=== PATIENT | male | born 1960 | race American Indian/Alaskan Native ===

== ENCOUNTER 2017-09-08 21:06 | Inpatient (IN) | payer SELFPAY ==
[2017-09-08 21:17] LABS: Basophils % (Auto) 0.7 % (0.0-1.8); Eosinophils # (Auto) 0.1 K/mm3 (0.0-0.4); Eosinophils % (Auto) 1.7 % (0.0-4.3); Hematocrit 42.4 % (35.5-45.6); Hemoglobin 14.1 gm/dl (11.8-15.2); Lymphocytes # (Auto) 1.5 K/mm3 (1.2-5.4); Mean Corpuscular HGB Conc 33 % (32-34); Mean Corpuscular Hemoglobin 30 pg (28-32); Mean Corpuscular Volume 91 fl (84-94); Monocytes # (Auto) 0.6 K/mm3 (0.0-0.8); Monocytes % (Auto) 7.6 % (0.0-7.3); Platelet Count 138 K/mm3 (140-440); Red Blood Count 4.68 M/mm3 (3.65-5.03); Red Cell Distribution Width 13.9 % (13.2-15.2)
--- NOTE | 2017-09-08 21:20 | Emergency Department Report ---
ED Neuro Deficit HPI - General Stated Complaint: HIGH BP Time Seen by Provider: 09/08/17 21:16 Source: patient, family, EMS Mode of arrival: Stretcher Limitations: No Limitations - History of Present Illness Initial Comments: 57-year-old male with a past medical history hypertension, CHF, previous CVA presents to the hospital with alteration in mental status. At aprox 8:15 PM family witnessed patient stand up and pass out. He was unresponsive upon EMS arrival and slowly became more responsive. Complains of a moderate right-sided headache. Patient's been noncompliant with his blood pressure medication for several days. Family also states the patient abuses cocaine. He denies taking blood thinners. - Related Data Home Medications: Home Medications Medication Instructions Recorded Confirmed Last Taken Lisinopril [Zestril] 30 mg PO DAILY 09/08/17 09/08/17 09/04/17 Metoprolol Tartrate 75 mg PO DAILY 09/08/17 09/08/17 09/04/17 Allergies/Adverse Reactions: Allergies Allergy/AdvReac Type Severity Reaction Status Date / Time No Known Allergies Allergy Verified 09/08/17 22:05 ED Review of Systems ROS: Stated complaint: HIGH BP Other details as noted in HPI Comment: All other systems reviewed and negative ED Past Medical Hx - Medications Home Medications: Home Medications Medication Instructions Recorded Confirmed Last Taken Type Lisinopril [Zestril] 30 mg PO DAILY 09/08/17 09/08/17 09/04/17 History Metoprolol Tartrate 75 mg PO DAILY 09/08/17 09/08/17 09/04/17 History ED Neuro Physical Exam - General Suspected Stroke: Yes - Neurological Exam Neurological exam: Present: alert - NIHSS Assessment Interval: Baseline 1a. Level of Consciousness: alert 1b. LOC Questions: answers no questions correctly 1c. LOC Commands: performs tasks correctly 2. Best Gaze: normal 3. Visual: no visual loss 4. Facial Palsy: normal symmetrical movement 5b. Motor Arm Right: no drift 5a. Motor Arm Left: drift 6a. Motor Leg Left: some gravity effort 6b. Motor Leg Right: no drift 7. Limb Ataxia: absent 8. Sensory: mild/moderate sensory loss 9. Best Language: no aphasia 10. Dysarthria: normal 11. Extinction/Inattention: no abnormality Total Score: 6 Stroke Severity: Moderate Stroke - Other Other exam information: General: No limitations, patient is alert in no acute distress Head exam: Atraumatic, normocephalic Eyes exam: Normal appearance, pupils equal reactive to light, extraocular movements intact ENT: Moist mucous membrane, normal oropharynx Neck exam: Normal inspection, full range of motion, no meningismus nontender Respiratory exam: Clear to auscultation bilateral, no wheezes, rales, crackles Cardiovascular: Normal rate and rhythm, normal heart sounds Abdomen: Soft, nondistended, and nontender, with normal bowel sounds, no rebound, or guarding Extremity: Full range of motion normal inspection no deformity Back: Normal Inspection, full range of motion, no tenderness Neurologic: Alert, oriented to person, year, but not to place, cranial nerves intact, left-sided 4/5 weakness of upper and lower extremity drift. Psychiatric: normal affect, normal mood Skin: Warm, dry, intact ED Course Vital Signs 09/08/17 09/08/17 09/08/17 21:17 21:25 21:30 Temperature 98.9 F Pulse Rate 71 85 86 Pulse Rate [ Right Arm] Respiratory 21 17 Rate Respiratory Rate [Right Arm ] Blood Pressure 171/108 180/103 Blood Pressure [Right Arm] O2 Sat by Pulse 97 95 97 Oximetry O2 Sat by Pulse Oximetry [ Right Arm] 09/08/17 09/08/17 09/08/17 21:45 22:00 22:15 Temperature Pulse Rate 85 Pulse Rate [ Right Arm] Respiratory 25 H 24 21 Rate Respiratory Rate [Right Arm ] Blood Pressure 197/119 189/129 189/129 Blood Pressure [Right Arm] O2 Sat by Pulse 97 96 95 Oximetry O2 Sat by Pulse Oximetry [ Right Arm] 09/08/17 09/08/17 09/08/17 22:20 22:30 22:45 Temperature Pulse Rate 86 80 Pulse Rate [ 89 Right Arm] Respiratory 21 17 Rate Respiratory 20 Rate [Right Arm ] Blood Pressure 162/99 171/102 168/104 Blood Pressure 162/99 [Right Arm] O2 Sat by Pulse 96 94 Oximetry O2 Sat by Pulse 98 Oximetry [ Right Arm] 09/08/17 09/08/17 09/08/17 23:00 23:04 23:05 Temperature Pulse Rate Pulse Rate [ 86 86 Right Arm] Respiratory 23 Rate Respiratory 20 20 Rate [Right Arm ] Blood Pressure 155/96 Blood Pressure 168/101 172/102 [Right Arm] O2 Sat by Pulse 97 Oximetry O2 Sat by Pulse 100 96 Oximetry [ Right Arm] 09/08/17 09/08/17 09/08/17 23:07 23:15 23:16 Temperature Pulse Rate 89 Pulse Rate [ 86 Right Arm] Respiratory 18 Rate Respiratory 19 Rate [Right Arm ] Blood Pressure 162/99 155/96 Blood Pressure 169/98 [Right Arm] O2 Sat by Pulse 95 Oximetry O2 Sat by Pulse 98 Oximetry [ Right Arm] 09/08/17 09/08/17 09/08/17 23:29 23:30 23:45 Temperature Pulse Rate 90 Pulse Rate [ 85 Right Arm] Respiratory 21 24 Rate Respiratory 20 Rate [Right Arm ] Blood Pressure 165/99 167/102 Blood Pressure 155/96 [Right Arm] O2 Sat by Pulse 96 97 Oximetry O2 Sat by Pulse 98 Oximetry [ Right Arm] 09/08/17 09/09/17 09/09/17 23:48 00:00 00:03 Temperature Pulse Rate Pulse Rate [ 89 85 Right Arm] Respiratory 16 Rate Respiratory 20 18 Rate [Right Arm ] Blood Pressure 175/102 Blood Pressure 167/102 172/100 [Right Arm] O2 Sat by Pulse 99 Oximetry O2 Sat by Pulse 96 98 Oximetry [ Right Arm] 09/09/17 09/09/17 09/09/17 00:15 00:18 00:30 Temperature Pulse Rate Pulse Rate [ 86 Right Arm] Respiratory 20 19 Rate Respiratory 18 Rate [Right Arm ] Blood Pressure 162/105 174/99 Blood Pressure 172/102 [Right Arm] O2 Sat by Pulse 96 96 Oximetry O2 Sat by Pulse 98 Oximetry [ Right Arm] 09/09/17 09/09/17 09/09/17 00:33 00:45 00:48 Temperature Pulse Rate Pulse Rate [ 89 82 Right Arm] Respiratory 22 Rate Respiratory 19 18 Rate [Right Arm ] Blood Pressure 162/105 Blood Pressure 176/100 176/102 [Right Arm] O2 Sat by Pulse 96 Oximetry O2 Sat by Pulse 96 98 Oximetry [ Right Arm] 09/09/17 09/09/17 09/09/17 00:57 01:00 01:03 Temperature Pulse Rate Pulse Rate [ Right Arm] Respiratory 21 20 22 Rate Respiratory Rate [Right Arm ] Blood Pressure 174/109 178/104 178/104 Blood Pressure [Right Arm] O2 Sat by Pulse 95 96 96 Oximetry O2 Sat by Pulse Oximetry [ Right Arm] 09/09/17 09/09/17 09/09/17 01:15 01:18 01:30 Temperature Pulse Rate Pulse Rate [ 92 H Right Arm] Respiratory 17 21 Rate Respiratory 18 Rate [Right Arm ] Blood Pressure 174/109 178/108 Blood Pressure 176/102 [Right Arm] O2 Sat by Pulse Oximetry O2 Sat by Pulse 96 Oximetry [ Right Arm] 09/09/17 09/09/17 09/09/17 01:45 01:48 02:00 Temperature Pulse Rate 80 Pulse Rate [ 78 Right Arm] Respiratory 25 H 22 Rate Respiratory 18 Rate [Right Arm ] Blood Pressure 176/107 175/109 Blood Pressure 178/105 [Right Arm] O2 Sat by Pulse 74 L Oximetry O2 Sat by Pulse 98 Oximetry [ Right Arm] 09/09/17 09/09/17 09/09/17 02:15 02:18 02:31 Temperature Pulse Rate 75 Pulse Rate [ 84 Right Arm] Respiratory 10 L 15 Rate Respiratory 18 Rate [Right Arm ] Blood Pressure 168/110 176/112 Blood Pressure 176/109 [Right Arm] O2 Sat by Pulse 73 L Oximetry O2 Sat by Pulse 98 Oximetry [ Right Arm] 09/09/17 09/09/17 09/09/17 02:45 02:48 03:01 Temperature Pulse Rate Pulse Rate [ 80 Right Arm] Respiratory 31 H 42 H Rate Respiratory 18 Rate [Right Arm ] Blood Pressure 176/112 189/110 Blood Pressure 180/95 [Right Arm] O2 Sat by Pulse Oximetry O2 Sat by Pulse 98 Oximetry [ Right Arm] 09/09/17 09/09/17 09/09/17 03:16 03:18 03:30 Temperature Pulse Rate 79 Pulse Rate [ 86 Right Arm] Respiratory 38 H 19 Rate Respiratory 18 Rate [Right Arm ] Blood Pressure 189/110 190/123 Blood Pressure 182/95 [Right Arm] O2 Sat by Pulse Oximetry O2 Sat by Pulse 98 Oximetry [ Right Arm] 09/09/17 09/09/17 09/09/17 03:45 03:48 04:00 Temperature Pulse Rate 81 Pulse Rate [ 82 Right Arm] Respiratory 20 20 Rate Respiratory 18 Rate [Right Arm ] Blood Pressure 189/124 177/105 Blood Pressure 189/110 [Right Arm] O2 Sat by Pulse Oximetry O2 Sat by Pulse 100 Oximetry [ Right Arm] 09/09/17 09/09/17 09/09/17 04:15 04:30 04:45 Temperature Pulse Rate 78 Pulse Rate [ Right Arm] Respiratory 19 18 15 Rate Respiratory Rate [Right Arm ] Blood Pressure 180/92 175/106 172/92 Blood Pressure [Right Arm] O2 Sat by Pulse Oximetry O2 Sat by Pulse Oximetry [ Right Arm] - Reevaluation(s) Reevaluation #1: 09/08/17 21:[address] head negative Reevaluation #2: 09/08/17 22:05 RN informed to decrease bp to less than 185/110 prior to tpa - Consultations Consultation #1: 09/08/17 21:34 Case d/w Dr Woody Will evaluate pt, official ct head report still pending 09/08/17 22:05 after eval, Dr reddy rec tpa after bp reduction - Lab Data Result diagrams: 09/08/17 21:11 09/08/17 21:11 Lab Results 09/08/17 09/08/17 09/08/17 Range/Units 21:11 21:11 21:11 WBC 7.3 (4.5-11.0) K/mm3 RBC 4.68 (3.65-5.03) M/mm3 Hgb 14.1 (11.8-15.2) gm/dl Hct 42.4 (35.5-45.6) % MCV 91 (84-94) fl MCH 30 (28-32) pg MCHC 33 (32-34) % RDW 13.9 (13.2-15.2) % Plt Count 138 L (140-440) K/mm3 Lymph % (Auto) 21.0 (13.4-35.0) % Dixon % (Auto) 7.6 H (0.0-7.3) % Eos % (Auto) 1.7 (0.0-4.3) % Baso % (Auto) 0.7 (0.0-1.8) % Lymph # 1.5 (1.2-5.4) K/mm3 Dixon # 0.6 (0.0-0.8) K/mm3 Eos # 0.1 (0.0-0.4) K/mm3 Baso # 0.0 (0.0-0.1) K/mm3 Seg Neutrophils % 69.0 (40.0-70.0) % Seg Neutrophils # 5.0 (1.8-7.7) K/mm3 PT 13.2 (12.2-14.9) Sec. INR 0.95 (0.87-1.13) APTT 22.2 L (24.2-36.6) Sec. Thrombin Time (15.1-19.6) Sec. Sodium 138 (137-145) mmol/L Potassium 4.0 (3.6-5.0) mmol/L Chloride 101.4 (98-107) mmol/L Carbon Dioxide 24 (22-30) mmol/L Anion Gap 17 mmol/L BUN 11 (9-20) mg/dL Creatinine 1.3 (0.8-1.5) mg/dL Estimated GFR > 60 ml/min BUN/Creatinine Ratio 8 % Glucose 100 (75-100) mg/dL Calcium 8.9 (8.4-10.2) mg/dL Troponin T < 0.010 (0.00-0.029) ng/mL 09/08/17 Range/Units 21:17 WBC (4.5-11.0) K/mm3 RBC (3.65-5.03) M/mm3 Hgb (11.8-15.2) gm/dl Hct (35.5-45.6) % MCV (84-94) fl MCH (28-32) pg MCHC (32-34) % RDW (13.2-15.2) % Plt Count (140-440) K/mm3 Lymph % (Auto) (13.4-35.0) % Dixon % (Auto) (0.0-7.3) % Eos % (Auto) (0.0-4.3) % Baso % (Auto) (0.0-1.8) % Lymph # (1.2-5.4) K/mm3 Dixon # (0.0-0.8) K/mm3 Eos # (0.0-0.4) K/mm3 Baso # (0.0-0.1) K/mm3 Seg Neutrophils % (40.0-70.0) % Seg Neutrophils # (1.8-7.7) K/mm3 PT (12.2-14.9) Sec. INR (0.87-1.13) APTT (24.2-36.6) Sec. Thrombin Time 16.9 (15.1-19.6) Sec. Sodium (137-145) mmol/L Potassium (3.6-5.0) mmol/L Chloride (98-107) mmol/L Carbon Dioxide (22-30) mmol/L Anion Gap mmol/L BUN (9-20) mg/dL Creatinine (0.8-1.5) mg/dL Estimated GFR ml/min BUN/Creatinine Ratio % Glucose (75-100) mg/dL Calcium (8.4-10.2) mg/dL Troponin T (0.00-0.029) ng/mL - EKG Data -: EKG Interpreted by Me EKG shows normal: sinus rhythm, axis (qrs -10), QRS complexes (qrsd 94), ST-T waves (no stemi) Rate: normal (84) - Radiology Data Radiology results: report reviewed ct head: negative - Medical Decision Making acute cva and htn with noncompliance cardene for bp tpa admission to icu hospitalist informed hx of cocaine abuse uds neg today - Differential Diagnosis ischemic CVA, hemorrhagic CVA, encephalopathy, hypertensive emergency - Thrombolytic Inclusion/Exclusion Thrombolytic Inclusion Criteria: Ischemic Stroke Onset< 3h, NIH Stroke Scale Deficit, Negative CT Scan for ICH, Age 18 or Older, Glucose of 50-400mg/dl Critical Care Time: Yes Critical care time in (mins) excluding proc time.: 35 Critical care attestation.: If time is entered above; I have spent that time in minutes in the direct care of this critically ill patient, excluding procedure time. ED Disposition Clinical Impression: Acute CVA (cerebrovascular accident), Uncontrolled hypertension, Noncompliance with medication regimen, Cocaine abuse Disposition: DC-09 OP ADMIT IP TO THIS HOSP Is pt being admited?: Yes Does the pt Need Aspirin: No (receiving tpa) Condition: Stable Time of Disposition: 22:12 (Dr Rosenberg/hosp)
[2017-09-08 21:27] LABS: INR 0.95 (0.87-1.13); Partial Thromboplastin Time 22.2 Sec. (24.2-36.6)
[2017-09-08 21:29] LABS: BUN/Creatinine Ratio 8; Blood Urea Nitrogen 11 mg/dL (9-20); Calcium 8.9 mg/dL (8.4-10.2); Hemolysis Index 71
--- NOTE | 2017-09-08 21:42 | Cat Scan Report ---
FINAL REPORT EXAM: CT HEAD/BRAIN WO CON HISTORY: neuro deficits < 6hrs or sx present upon awakening TECHNIQUE: CT head without contrast PRIORS: No prior studies for comparison FINDINGS: No acute intra-axial or extra-axial hemorrhage is identified. There is no evidence of midline shift or mass effect. The ventricles and sulci are within normal limits. Mcdonough-white matter differentiation is intact. No acute parenchymal abnormalities seen. Bony calvarium is grossly intact. Mild mucosal thickening noted within the maxillary sinuses IMPRESSION: Negative CT head
[2017-09-08] MEDS ORDERED: ACTIVASE ONE (22:03)
[2017-09-08] MEDS ORDERED: NACL 0.9% IV ONE (22:06)
[2017-09-08] MEDS ORDERED: ACTIVASE IV ONE ×2 (22:06)
[2017-09-08] MEDS ORDERED: CARDENE 50 MG in NACL 0.9% 250ML 230 ML IV SCH (23:00)
[2017-09-08] MEDS ORDERED: TYLENOL PO PRN (23:24)
[2017-09-08] MEDS ORDERED: TYLENOL PR PRN (23:25)
[2017-09-09 00:16] LABS: Amphetamine Screen,Urine PRESUMPTIVE NEGATIVE; Benzodiazepines Screen,Urine PRESUMPTIVE NEGATIVE; Cannabinoid Screen,Urine PRESUMPTIVE NEGATIVE; Cocaine Screen,Urine PRESUMPTIVE NEGATIVE; Methadone Screen,Urine PRESUMPTIVE NEGATIVE; Opiate Screen,Urine PRESUMPTIVE NEGATIVE
--- NOTE | 2017-09-09 09:52 | History and Physical Report ---
CHIEF COMPLAINT: Change in mental status. HISTORY OF PRESENT ILLNESS: The patient is a 57-year-old male with past history of hypertension, congestive heart failure, and previous CVA, who was noted by family to have change in mental status, and the patient was also noted to have passed out after falling to the ground for some minutes and Emergency Medical Services was called and the patient was noted to slowly become more responsive and was brought to the Emergency Room and also complained of headache on the right side. There was no history of chest pain, no history of shortness of breath. The patient is known to have high blood pressure and noncompliance with medication and also was known to be abusing cocaine. The patient was having generalized weakness and also weakness that is more on the left side than the right side of the body and based on that was given TPA in the Emergency Room based on teleradiology recommendation. PAST MEDICAL HISTORY: Pertinent for high blood pressure and drug abuse. PAST SURGICAL HISTORY: Unremarkable. FAMILY HISTORY: Noncontributory. SOCIAL HISTORY: The patient uses illicit drugs. It is not known whether the patient smokes cigarettes and also whether the patient drinks alcohol. MEDICATIONS: The patient is on lisinopril 30 mg daily, metoprolol tartrate 75 mg daily. ALLERGIES: There are no known drug allergies. REVIEW OF SYSTEMS: CONSTITUTIONAL: There is no fever, no chills, no diaphoresis. HEENT: There is headache, but no sore throat. CARDIOVASCULAR SYSTEM: There is no chest pain or orthopnea. RESPIRATORY SYSTEM: There is no shortness of breath or cough. GASTROINTESTINAL SYSTEM: There is no nausea, no vomiting, no abdominal pain, diarrhea, or constipation. NEUROLOGIC SYSTEM: Change in mental status noted. Syncopal episode noted. There is no numbness. MUSCULOSKELETAL SYSTEM: There is no joint pain or swelling. DERMATOLOGICAL SYSTEM: There is no skin rash or itching. GENITOURINARY SYSTEM: There is no dysuria, hematuria, or flank pain. Rest of system review is normal. PHYSICAL EXAMINATION: GENERAL: At the time of exam, the patient was found to be alert, oriented x 3 and not in acute distress. VITAL SIGNS: At the initial time of presentation shows temperature of 98.9 degree Fahrenheit, pulse of 85, respirations 21, blood pressure 171/108, and O2 sat of 95% on room air. HEENT: Showed pupils to be equal, round, and reactive to light and accommodation. Extraocular muscles are intact. NECK: Supple with no JVD or carotid bruit. CARDIOVASCULAR SYSTEM: Showed normal first and second heart sounds with no gallops or murmurs. RESPIRATORY SYSTEM: Show good air entry on both sides of the lung with no abnormal breath sounds. GASTROINTESTINAL SYSTEM: Show abdomen to be full, soft, nontender with no organomegaly or rigidity. NEUROLOGIC SYSTEM: Shows the patient to be generally weak, more on the left side than right with no loss of sensory function, with some degree of speech impairment with slurring. MUSCULOSKELETAL SYSTEM: Showed no joint swelling or tenderness. DERMATOLOGICAL SYSTEM: Showed no skin rash. GENITOURINARY SYSTEM: Showed no costovertebral angle tenderness. PERTINENT LABORATORY AND IMAGING STUDIES: The patient's CBC showed normal white count, normal hemoglobin and normal hematocrit. A slightly low platelet of 138,000 with CBC differential showing high monocyte count of 7.3 with coagulation studies coming back unremarkable. The patient's chemistry was unremarkable. The patient's urine drug screen was unremarkable. IMAGING STUDIES: The patient had a CT of the head without contrast done. The results came back showing negative study. DIAGNOSES: 1. Left-sided weakness. 2. Generalized weakness. 3. History of drug abuse. PLAN: 1. The patient will be admitted to ICU because of TPA treatment. Also, the patient will have MRI of the head without contrast done and will have bilateral carotid Doppler done this morning. 2. The patient will have critical care consult with Dr. Gama for ICU admission following TPA treatment. 3. The patient will have speech therapy consult for evaluation and treatment and physical therapy consult for evaluation and treatment. 4. The patient will remain n.p.o. until he passes the swallow test. 5. The patient will have Tylenol rectally every 4 hours as needed for fever and headache. 6. The patient will stay on IV nicardipine drip which will to be titrated to maintain systolic blood pressure around 160 to 80 and diastolic pressure between 100 and 110, to maintain the permissive effect of blood pressure in the situation of cerebrovascular accident. 7. The patient will be on oxygen by nasal cannula. JOB# [id number] OCN/NTS MTDD
--- NOTE | 2017-09-09 13:29 | Magnetic Resonance Report ---
MRA HEAD WITHOUT CONTRAST HISTORY: CVA. [id number] imaging with MIP reformations of the [place] of [place] is submitted. The arteries appear widely patent and free of hemodynamically significant stenosis, aneurysm or dissection. Moderate bilateral posterior communicating arteries are noted. IMPRESSION: Unremarkable MRA head.
--- NOTE | 2017-09-09 13:29 | Magnetic Resonance Report ---
MRI BRAIN WITHOUT CONTRAST: 09/08/17 23:11:00 CLINICAL: CVA. TECHNIQUE: Axial diffusion, T1, T2, gradient echo T2*, coronal and axial FLAIR and sagittal T1 sequences on a 1.5 Susan magnet. FINDINGS: The ventricles and sulci are large for age. No restricted diffusion. A few tiny nonspecific left frontal lobe and left parietal lobe white matter hyperintense lesions on T2 and FLAIR. No lacunar infarcts and no micro-bleeds. No mass or mass effect. No hemorrhage, edema or extra-axial collection. Normal pituitary and optic chiasm. The brainstem and cerebellum are normal. Intact vascular flow voids. Bilateral ethmoid and left maxillary sinus mucoperiosteal thickening. No air-fluid levels. Bilateral maxillary sinus mucous retention cysts. The orbits, and soft tissues are normal. Normal calvarium and skull base. IMPRESSION: 1. No evidence of acute/subacute infarct or hemorrhage. 2. Global cortical atrophy. 3. A few tiny nonspecific left frontal lobe and left parietal lobe white matter tiny white matter hyperintense lesions on FLAIR and T2. 4. Sinusitis.
--- NOTE | 2017-09-09 13:30 | History and Physical Report ---
History of Present Illness Date of examination: 09/09/17 Date of admission: 09/08/17 23:11 Chief complaint: NEUROLOLGY CONSULTATION NOTE: CC: I am asked to see this 57 AA M for stroke now s/p tPA Rx. HPI: Today Patient stood up, fell to the floor and passed out briefly. When he came to he complained of a right sided headache and had left sided weakness. this was confirmed in the ED, NIHSS = 6, a head CT was negative (images reviewed ) for blood, and he recieved tPA Rx with marked improvement in his left hemiparesis. He has uncontrolled HTN (BP here at one point 180/103), and has a Hx of prior CVA without residual deficit, cocaine use (current toxic screen negative), and CHF. He felt perfectly fine prior to the onset of the left hemparesis. ROS: aside from the above, an 11 point ROS is negative. FH/SH reviewed but not copied here MEDS/ALLERGIES - see chart EXAM: heent - nl, no evidence of blunt head trauma neck - supple no bruits cor - no m, rubs abn soft bs nl extrem - no edema, no trauma Neuro Exam: MS - alert, oriented x 3, speech fluent and clear and without errors, follows commands quickly and accurately CN 2 - 12: nl, EOM full without nystagmus, pupils both 4 mm and react normally to bright light MOT - nl strength all four extrem prox and distally to resistance testing SENS - reports decreased sens to touch over left leg, arm, and face CEREB - fnf nl on right, sl clumbsy on left DTRs - 1+ at biceps bilat, trace at knees, absent at ankles, both great toes downgoing GAIT - not tested due to fall risk Dx IMP: 1. Acute right cerebral infarct (MCA distribution) with left hemiparesis almost completely resolved. 2. HTN not controlled 3. Prior hx CHF 4. Prior remote cocaine use RECC: 1. Agree get MRI head, echo, C-ultrasound 2. Antiplatelet Rx 3. Go from there Romero Evans MD Medications and Allergies Allergies Allergy/AdvReac Type Severity Reaction Status Date / Time No Known Allergies Allergy Verified 09/08/17 22:05 Home Medications Medication Instructions Recorded Confirmed Last Taken Type Lisinopril [Zestril] 30 mg PO DAILY 09/08/17 09/08/17 09/04/17 History Metoprolol Tartrate 75 mg PO DAILY 09/08/17 09/08/17 09/04/17 History Active Meds: Active Medications Acetaminophen (Tylenol) 650 mg [place] Q4H PRN PRN Reason: Fever >101 Nicardipine HCl 50 mg/ Sodium (Chloride) 250 mls @ 25 mls/hr IV TITR EDILBERTO; Protocol Physical Examination - Vital Signs Vital Signs: Vital Signs Pulse Resp Pulse Ox 71 21 97 09/08/17 21:17 09/08/17 21:17 09/08/17 21:17 Results - Laboratory Findings CBC and BMP: 09/08/17 21:11 09/08/17 21:11 Abnormal Lab Findings: Abnormal Labs 09/08/17 09/08/17 21:11 21:11 Plt Count 138 L [place] % (Auto) 7.6 H APTT 22.2 L
--- NOTE | 2017-09-09 14:30 | Progress Note ---
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 We will follow-up MRI/echo and carotid ultrasound. Continue antiplatelet treatment. Accelerated hypertension. Patient to resume medications. CHF, compensated. Cocaine use history. Patient will be counseled. History Interval history: No new issues overnight. Hospitalist Physical - Constitutional Vitals: Temp Pulse Resp BP Pulse Ox 98.0 F 96 H 15 145/84 95 09/09/17 12:00 09/09/17 14:00 09/09/17 14:00 09/09/17 14:00 09/09/17 14:00 General appearance: Present: no acute distress, well-nourished - EENT Eyes: Present: PERRL, EOM intact ENT: hearing intact, clear oral mucosa, dentition normal - Neck Neck: Present: supple, normal ROM - Respiratory Respiratory effort: normal Respiratory: bilateral: CTA - Cardiovascular Rhythm: regular Heart Sounds: Present: S1 & S2. Absent: gallop, rub - Extremities Extremities: no ischemia, No edema, Full ROM - Abdominal General gastrointestinal: soft, non-tender, non-distended, normal bowel sounds - Integumentary Integumentary: Present: clear, warm, dry - Neurologic Neurologic: CNII-XII intact, moves all extremities Results - Labs CBC & Chem 7: 09/08/17 21:11 09/08/17 21:11 Labs: Laboratory Last Values WBC 7.3 K/mm3 (4.5-11.0) 09/08/17 21:11 RBC 4.68 M/mm3 (3.65-5.03) 09/08/17 21:11 Hgb 14.1 gm/dl (11.8-15.2) 09/08/17 21:11 Hct 42.4 % (35.5-45.6) 09/08/17 21:11 MCV 91 fl (84-94) 09/08/17 21:11 MCH 30 pg (28-32) 09/08/17 21:11 MCHC 33 % (32-34) 09/08/17 21:11 RDW 13.9 % (13.2-15.2) 09/08/17 21:11 Plt Count 138 K/mm3 (140-440) L 09/08/17 21:11 Lymph % (Auto) 21.0 % (13.4-35.0) 09/08/17 21:11 [place] % (Auto) 7.6 % (0.0-7.3) H 09/08/17 21:11 Eos % (Auto) 1.7 % (0.0-4.3) 09/08/17 21:11 Baso % (Auto) 0.7 % (0.0-1.8) 09/08/17 21:11 Lymph # 1.5 K/mm3 (1.2-5.4) 09/08/17 21:11 [place] # 0.6 K/mm3 (0.0-0.8) 09/08/17 21:11 Eos # 0.1 K/mm3 (0.0-0.4) 09/08/17 21:11 Baso # 0.0 K/mm3 (0.0-0.1) 09/08/17 21:11 Seg Neutrophils % 69.0 % (40.0-70.0) 09/08/17 21:11 Seg Neutrophils # 5.0 K/mm3 (1.8-7.7) 09/08/17 21:11 PT 13.2 Sec. (12.2-14.9) 09/08/17 21:11 INR 0.95 (0.87-1.13) 09/08/17 21:11 APTT 22.2 Sec. (24.2-36.6) L 09/08/17 21:11 Thrombin Time 16.9 Sec. (15.1-19.6) 09/08/17 21:17 Sodium 138 mmol/L (137-145) 09/08/17 21:11 Potassium 4.0 mmol/L (3.6-5.0) 09/08/17 21:11 Chloride 101.4 mmol/L (98-107) 09/08/17 21:11 Carbon Dioxide 24 mmol/L (22-30) 09/08/17 21:11 Anion Gap 17 mmol/L 09/08/17 21:11 BUN 11 mg/dL (9-20) 09/08/17 21:11 Creatinine 1.3 mg/dL (0.8-1.5) 09/08/17 21:11 Estimated GFR > 60 ml/min 09/08/17 21:11 BUN/Creatinine Ratio 8 % 09/08/17 21:11 Glucose 100 mg/dL (75-100) 09/08/17 21:11 Calcium 8.9 mg/dL (8.4-10.2) 09/08/17 21:11 Troponin T < 0.010 ng/mL (0.00-0.029) 09/08/17 21:11 Urine Opiates Screen Presumptive negative 09/08/17 23:34 Urine Methadone Screen Presumptive negative 09/08/17 23:34 Ur Barbiturates Screen Presumptive negative 09/08/17 23:34 Ur Phencyclidine Scrn Presumptive negative 09/08/17 23:34 Ur Amphetamines Screen Presumptive negative 09/08/17 23:34 U Benzodiazepines Scrn Presumptive negative 09/08/17 23:34 Urine Cocaine Screen Presumptive negative 09/08/17 23:34 U Marijuana (THC) Screen Presumptive negative 09/08/17 23:34 Drugs of Abuse Note Disclamer 09/08/17 23:34
--- NOTE | 2017-09-09 18:21 | Consultation ---
History of Present Illness Consult date: 09/09/17 Reason for consult: other (CVA s/p TPA) History of present illness: 57-year-old male with a past medical history hypertension, CHF, previous CVA presents to the hospital with alteration in mental status. At aprox 8:15 PM family witnessed patient stand up and pass out. He was unresponsive upon EMS arrival and slowly became more responsive. Complains of a moderate right-sided headache. Patient's been noncompliant with his blood pressure medication for several days. Family also states the patient abuses cocaine (current urine drug screen is negative). He denies taking blood thinners. Patient is s/p TPA and needs critical care admission for monitoring s/p TPA. Patient was seen and examined in the ER. Vitals, labs, medications, chart and imaging were reviewed. He lives in [place] and periodically visits his family in [place]. He states he does not remember what happened, he stood up and the next thing he remembers is waking up in the ER with a headache and weakness of his left side Medications and Allergies Allergies Allergy/AdvReac Type Severity Reaction Status Date / Time amoxicillin [From Augmentin] Allergy Hives Verified 09/09/17 13:30 clavulanic acid Allergy Hives Verified 09/09/17 13:30 [From Augmentin] Home Medications Medication Instructions Recorded Confirmed Last Taken Type Lisinopril [Zestril] 30 mg PO DAILY 09/08/17 09/08/17 09/04/17 History Metoprolol Tartrate 75 mg PO DAILY 09/08/17 09/08/17 09/04/17 History Active Meds: Active Medications Acetaminophen (Tylenol) 650 mg IL Q4H PRN PRN Reason: Fever >101 Nicardipine HCl 50 mg/ Sodium (Chloride) 250 mls @ 25 mls/hr IV TITR EDILBERTO; Protocol Review of Systems Constitutional: other (headaches), no weight loss, no weight gain, no fever, no chills, no sweats, no night sweats Ears, nose, mouth and throat: no ear pain, no ear discharge, no tinnitis, no decreased hearing, no nasal congestion, no sinus pressure Cardiovascular: syncope, no chest pain, no orthopnea, no palpitations, no lightheadedness, no shortness of breath, no dyspnea on exertion Respiratory: no cough, no cough with sputum, no excessive sputum, no hemoptysis , no shortness of breath, no dyspnea on exertion Gastrointestinal: no abdominal pain, no nausea, no vomiting, no diarrhea, no change in bowel habits, no hematemesis, no hematochezia, no loss of appetite Genitourinary Male: no hematuria, no flank pain, no discharge, no urinary frequency, no urinary hesitancy, no nocturia Rectal: no pain, no incontinence, no bleeding, no itching Musculoskeletal: other (Left ankle swelling), no neck stiffness, no neck pain, no shooting arm pain, no arm numbness/tingling, no low back pain, no leg numbness/tingling, no redness of joints, no morning stiffness Integumentary: no rash, no pruritis, no redness, no sores, no wounds, no jaundice, no dryness Neurological: transient paralysis, weakness, parathesias, lack of coordination, balance difficulties, no convulsions, no aphasia, no change in speech, no change in mentation, no memory loss, no changes in smell/taste, no loss of vision Psychiatric: anxiety, no memory loss, no insomnia, no change in appetite, no change in libido, no suicidal ideation, no depression, no hopelessness Endocrine: no cold intolerance, no heat intolerance, no polyphagia, no excessive thirst, no polydipsia, no polyuria Hematologic/Lymphatic: no easy bruising, no easy bleeding, no lymphadenopathy, no lymphedema Allergic/Immunologic: no urticaria, no allergic rhinitis, no wheezing, no anaphylaxis, no angioedema Physical Examination Vital signs: Vital Signs Pulse Resp Pulse Ox 71 21 97 09/08/17 21:17 09/08/17 21:17 09/08/17 21:17 General appearance: no acute distress, appears uncomfortable Eyes: non-icteric ENT: oropharynx moist Neck: supple, no lymphadenopathy, no JVD, bruit Effort: normal Ascultation: Bilateral: diminished breath sounds Cardiovascular: regular rate and rhythm, other (s1, s2, no murmurs, gallops or rubs) Gastrointestinal: normoactive bowel sounds, soft, non-tender, non-distended, other (no hepatosplenomegaly, obese) Integumentary: normal Extremities: no cyanosis, no edema, pink and warm, no ischemia or petechiae, other (left ankle swelling, non-tender) Musculoskeletal: no deformities normal mental status, pupils equal and round, CN II-XII normal, motor strength normal and, other (MOT - nl strength all four extrem prox and distally to resistance testing) mood appropriate, anxious Results - Laboratory Findings CBC and BMP: 09/08/17 21:11 09/08/17 21:11 PT/INR, D-dimer PT 13.2 Sec. (12.2-14.9) 09/08/17 21:11 INR 0.95 (0.87-1.13) 09/08/17 21:11 Abnormal lab findings: Abnormal Labs 09/08/17 09/08/17 21:11 21:11 Plt Count 138 L [place] % (Auto) 7.6 H APTT 22.2 L - Diagnostic Findings Additional studies: 2Dechocardiogram.....severely dilated and depressed LV function, EF 25-30%. RVSP 28, impaired relaxation Assessment and Plan Acute CVA s/p TPA Cardiomyopathy, EF 25% h/o CHF HTN, suboptimal control Obesity Remote history of cocaine use -Admit ICU -Neurochecks, q2 -Monitor post TPA administration per protocol -Secondary stroke prophylaxis -Blood pressure control -Carotid dopplers -Follow further Neuorology recommendations -Cardioprotective measures( MARIO and B-rickie therapy) -Critical care bundles addressed -Lifestyle modifications and weight loss -Full code status Patient updated at the bedside. Discussed with RN at the bedside CC 35 minutes -
[2017-09-10] MEDS ORDERED: LOVENOX SUB-Q SCH (12:00)
[2017-09-10] MEDS ORDERED: ASPIRIN PO SCH (12:00)
[2017-09-10] MEDS ORDERED: PLAVIX PO SCH (12:00)
--- NOTE | 2017-09-10 12:11 | Progress Note ---
Assessment and Plan Acute CVA s/p TPA Cardiomyopathy, EF 25% h/o CHF HTN, suboptimal control Obesity Remote history of cocaine use -Secondary stroke prophylaxis Aspirin, plavix, lipitor initiated -Blood pressure control -Carotid dopplers -Follow further Neuorology recommendations -Cardioprotective measures( MARIO and B-rickie therapy) -Critical care bundles addressed -Lifestyle modifications and weight loss -PT/OT and speech language pathologist to evaluate and treat -OK to transfer telemetry -Full code status Patient and updated at the bedside. Discussed with RN at the bedside - Subjective Date of service: 09/10/17 Principal diagnosis: Acute CVA s/p TPA, cardiomyopathy, HTN Interval history: Seen and examined. No acute neurologic deficits, improving strength. 24 hour events reviewed, discussed with RT and RN. Discussed in IDT-ICU rounds Denies any chest pain, no shortness of breath, no fevers or chills. No abdominal pain, no cough, no nausea or vomiting Objective Vital Signs - 12hr 09/10/17 09/10/17 09/10/17 00:30 01:00 01:30 Temperature Pulse Rate 87 86 83 Respiratory 17 23 19 Rate Blood Pressure 136/76 137/81 137/81 O2 Sat by Pulse 99 96 100 Oximetry 09/10/17 09/10/17 09/10/17 02:00 02:30 03:00 Temperature Pulse Rate 78 77 75 Respiratory 19 20 22 Rate Blood Pressure 146/85 146/85 149/85 O2 Sat by Pulse 97 97 97 Oximetry 09/10/17 09/10/17 09/10/17 03:30 04:00 04:30 Temperature 98.5 F Pulse Rate 74 71 72 Respiratory 18 19 17 Rate Blood Pressure 149/85 148/81 148/81 O2 Sat by Pulse 98 97 98 Oximetry 09/10/17 09/10/17 09/10/17 05:00 05:30 06:00 Temperature Pulse Rate 82 71 78 Respiratory 16 19 16 Rate Blood Pressure 141/91 141/91 141/91 O2 Sat by Pulse 98 100 Oximetry 09/10/17 09/10/17 09/10/17 06:30 07:00 07:30 Temperature Pulse Rate 71 70 70 Respiratory 18 17 21 Rate Blood Pressure 150/96 150/87 150/87 O2 Sat by Pulse 98 94 98 Oximetry 09/10/17 09/10/17 09/10/17 08:00 08:30 09:00 Temperature Pulse Rate 71 86 87 Respiratory 19 16 26 H Rate Blood Pressure 151/97 150/87 151/97 O2 Sat by Pulse 97 98 99 Oximetry 09/10/17 11:20 Temperature Pulse Rate Respiratory Rate Blood Pressure O2 Sat by Pulse 97 Oximetry Constitutional: no acute distress, other (sitting up in a chair, not in any distress) Eyes: non-icteric ENT: oropharynx moist Neck: supple, no lymphadenopathy, no JVD, bruit Effort: normal Ascultation: Bilateral: diminished breath sounds Cardiovascular: regular rate and rhythm, other (s1, s2, no murmurs, gallops or rubs) Gastrointestinal: normoactive bowel sounds, soft, non-tender, non-distended, other (no hepatosplenomegaly, obese) Integumentary: normal Extremities: no cyanosis, no edema, pink and warm, no ischemia or petechiae, other (left ankle swelling, non-tender) Neurologic: normal mental status, pupils equal and round, CN II-XII normal, motor strength normal and, other (MOT - nl strength all four extrem prox and distally to resistance testing) Psychiatric: mood appropriate, affect normal CBC and BMP: 09/08/17 21:11 09/08/17 21:11 ABG, PT/INR, D-dimer: PT/INR, D-dimer PT 13.2 Sec. (12.2-14.9) 09/08/17 21:11 INR 0.95 (0.87-1.13) 09/08/17 21:11 Abnormal lab findings: Abnormal Labs 09/08/17 09/08/17 21:11 21:11 Plt Count 138 L [place] % (Auto) 7.6 H APTT 22.2 L Allied health notes reviewed: PT
--- NOTE | 2017-09-10 12:44 | Progress Note ---
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 MRI/MRA unremarkable. Echocardiogram reveals left checklist size moderately to severely dilated with moderate concentric left ventricular hypertrophy. Patient also has global left ventricular systolic function severely decreased. Mild pulmonary hypertension Accelerated hypertension. Patient to resume medications. CHF, compensated. Cocaine use history. Patient will be counseled. Disposition. Transfer to the floor. History Interval history: No new issues overnight. Hospitalist Physical - Constitutional Vitals: Temp Pulse Resp BP Pulse Ox 98.5 F 87 26 H 151/97 97 09/10/17 04:00 09/10/17 09:00 09/10/17 09:00 09/10/17 09:00 09/10/17 11:20 General appearance: Present: no acute distress, well-nourished - EENT Eyes: Present: PERRL, EOM intact ENT: hearing intact, clear oral mucosa, dentition normal - Neck Neck: Present: supple, normal ROM - Respiratory Respiratory effort: normal Respiratory: bilateral: CTA - Cardiovascular Rhythm: regular Heart Sounds: Present: S1 & S2. Absent: gallop, rub - Extremities Extremities: no ischemia, No edema, Full ROM - Abdominal General gastrointestinal: soft, non-tender, non-distended, normal bowel sounds - Integumentary Integumentary: Present: clear, warm, dry - Neurologic Neurologic: CNII-XII intact, moves all extremities Results - Labs CBC & Chem 7: 09/08/17 21:11 09/08/17 21:11 Labs: Laboratory Last Values WBC 7.3 K/mm3 (4.5-11.0) 09/08/17 21:11 RBC 4.68 M/mm3 (3.65-5.03) 09/08/17 21:11 Hgb 14.1 gm/dl (11.8-15.2) 09/08/17 21:11 Hct 42.4 % (35.5-45.6) 09/08/17 21:11 MCV 91 fl (84-94) 09/08/17 21:11 MCH 30 pg (28-32) 09/08/17 21:11 MCHC 33 % (32-34) 09/08/17 21:11 RDW 13.9 % (13.2-15.2) 09/08/17 21:11 Plt Count 138 K/mm3 (140-440) L 09/08/17 21:11 Lymph % (Auto) 21.0 % (13.4-35.0) 09/08/17 21:11 [place] % (Auto) 7.6 % (0.0-7.3) H 09/08/17 21:11 Eos % (Auto) 1.7 % (0.0-4.3) 09/08/17 21:11 Baso % (Auto) 0.7 % (0.0-1.8) 09/08/17 21:11 Lymph # 1.5 K/mm3 (1.2-5.4) 09/08/17 21:11 [place] # 0.6 K/mm3 (0.0-0.8) 09/08/17 21:11 Eos # 0.1 K/mm3 (0.0-0.4) 09/08/17 21:11 Baso # 0.0 K/mm3 (0.0-0.1) 09/08/17 21:11 Seg Neutrophils % 69.0 % (40.0-70.0) 09/08/17 21:11 Seg Neutrophils # 5.0 K/mm3 (1.8-7.7) 09/08/17 21:11 PT 13.2 Sec. (12.2-14.9) 09/08/17 21:11 INR 0.95 (0.87-1.13) 09/08/17 21:11 APTT 22.2 Sec. (24.2-36.6) L 09/08/17 21:11 Thrombin Time 16.9 Sec. (15.1-19.6) 09/08/17 21:17 Sodium 138 mmol/L (137-145) 09/08/17 21:11 Potassium 4.0 mmol/L (3.6-5.0) 09/08/17 21:11 Chloride 101.4 mmol/L (98-107) 09/08/17 21:11 Carbon Dioxide 24 mmol/L (22-30) 09/08/17 21:11 Anion Gap 17 mmol/L 09/08/17 21:11 BUN 11 mg/dL (9-20) 09/08/17 21:11 Creatinine 1.3 mg/dL (0.8-1.5) 09/08/17 21:11 Estimated GFR > 60 ml/min 09/08/17 21:11 BUN/Creatinine Ratio 8 % 09/08/17 21:11 Glucose 100 mg/dL (75-100) 09/08/17 21:11 Calcium 8.9 mg/dL (8.4-10.2) 09/08/17 21:11 Troponin T < 0.010 ng/mL (0.00-0.029) 09/08/17 21:11 Urine Opiates Screen Presumptive negative 09/08/17 23:34 Urine Methadone Screen Presumptive negative 09/08/17 23:34 Ur Barbiturates Screen Presumptive negative 09/08/17 23:34 Ur Phencyclidine Scrn Presumptive negative 09/08/17 23:34 Ur Amphetamines Screen Presumptive negative 09/08/17 23:34 U Benzodiazepines Scrn Presumptive negative 09/08/17 23:34 Urine Cocaine Screen Presumptive negative 09/08/17 23:34 U Marijuana (THC) Screen Presumptive negative 09/08/17 23:34 Drugs of Abuse Note Disclamer 09/08/17 23:34
--- NOTE | 2017-09-10 13:02 | Progress Note ---
Subjective Date of service: 09/10/17 Principal diagnosis: Acute CVA s/p TPA, cardiomyopathy, HTN Interval history: NEUROLOGY FOLLOW UP NOTE: No new sx. MRI head - nl, no new infarct seen on DWI images C-ultrasound - no hemodynam sig stenosis right or left carotid systems. antegrade flow both vertebrals Echo - abn due to low EF = 25 - 30% Dx IMP: 1. Acute stroke right cerbral hemisphere (R MCA distribution), s/p tPA Rx 2. Hx CHG with low EF 25 - 30% which may have been the site of embolic propogation. 3. HTN RECC: 1. Begin anticoagulation Rx 2. Pursue PT Rx, will likely need Rehab short term 3. Go from there. Call as needed. Romero Evans MD Objective - Vital Sign Vital Signs - 12hr 09/10/17 09/10/17 09/10/17 01:00 01:30 02:00 Temperature Pulse Rate 86 83 78 Respiratory 23 19 19 Rate Blood Pressure 137/81 137/81 146/85 O2 Sat by Pulse 96 100 97 Oximetry 09/10/17 09/10/17 09/10/17 02:30 03:00 03:30 Temperature Pulse Rate 77 75 74 Respiratory 20 22 18 Rate Blood Pressure 146/85 149/85 149/85 O2 Sat by Pulse 97 97 98 Oximetry 09/10/17 09/10/17 09/10/17 04:00 04:30 05:00 Temperature 98.5 F Pulse Rate 71 72 82 Respiratory 19 17 16 Rate Blood Pressure 148/81 148/81 141/91 O2 Sat by Pulse 97 98 Oximetry 09/10/17 09/10/17 09/10/17 05:30 06:00 06:30 Temperature Pulse Rate 71 78 71 Respiratory 19 16 18 Rate Blood Pressure 141/91 141/91 150/96 O2 Sat by Pulse 98 100 98 Oximetry 09/10/17 09/10/17 09/10/17 07:00 07:30 08:00 Temperature Pulse Rate 70 70 71 Respiratory 17 21 19 Rate Blood Pressure 150/87 150/87 151/97 O2 Sat by Pulse 94 98 97 Oximetry 09/10/17 09/10/17 09/10/17 08:30 09:00 11:20 Temperature Pulse Rate 86 87 Respiratory 16 26 H Rate Blood Pressure 150/87 151/97 O2 Sat by Pulse 98 99 97 Oximetry - Laboratory Findings CBC and BMP: 09/08/17 21:11 09/08/17 21:11 Abnormal Lab Findings: Abnormal Labs 09/08/17 09/08/17 21:11 21:11 Plt Count 138 L [place] % (Auto) 7.6 H APTT 22.2 L
[2017-09-10 13:58] LABS: Chol/HDL Ratio 4.24 %
--- NOTE | 2017-09-11 09:06 | Discharge Summary ---
Providers - Providers Date of Admission: 09/08/17 23:11 Date of discharge: 09/11/17 Attending physician: KARYN EDWARDS 09/09/17 00:10 Consult to Physician [CONS] Routine Comment: LEFT MESSAGE CONSULT ON ERIKAVAN[facility] CELL [id number] Consulting Provider: GERSON WALTERS Physician Instructions: Reason For Exam: ICU ADMISSION FOR TPA TREATMENT FOR CVA 09/09/17 06:00 Consult to Physician [CONS] Routine Comment: Consulting Provider: CARIDAD GALLAGHER Physician Instructions: Reason For Exam: CVA Physical Therapy Evaluation and Treat [CONS] Routine Comment: Reason For Exam: CVA Speech Therapy Evaluation and Treat [CONS] Routine Reason For Exam: CVA 09/10/17 11:33 Occupational Therapy Evaluate and Treat [CONS] Routine Comment: Reason For Exam: CVA s/p TPA Primary care physician: LEATHER LACER Hospitalization Reason for admission: cva Condition: Stable Hospital course: This is a 57-year-old male who presented through the emergency department with diagnosis of acute right cerebral hemisphere MCA distribution CVA who underwent TPA treatment. Patient had resolution of symptoms. MRI of the head was normal and showed no new infarct. Carotid ultrasound showed no hemodynamic significant stenosis of the right or left carotid systems and antegrade flow of both vertebral arteries. Echocardiogram shows some abnormality of the EF 25-30 % which according to the patient is not new. No evidence of thrombus identified. Patient has a history of systolic heart failure. Patient seen by neurology in consultation who recommended anticoagulation/stroke prophylaxis given the low EF. Patient was seen by physical therapy and consultation recommended home health PT. Dedicated discharge time 32 minutes. Disposition: [id number] HOME UNDER HOME [facility] Time spent for discharge: 32 - Discharge Diagnoses (1) Acute CVA (cerebrovascular accident) Status: Acute (2) Cocaine abuse Status: Acute (3) Noncompliance with medication regimen Status: Acute (4) Uncontrolled hypertension Status: Acute Core Measure Documentation - Palliative Care Palliative Care/ Comfort Measures: Not Applicable - Core Measures Any of the following diagnoses?: stroke - Stroke Discharge Requirements Statin for LDL = or >70 mg/dl on DC: Yes Anticoag for atrial fib/atrial flutter: Not Applicable Reason for no anticoag for AF/F on DC: Not Indicated Antithrombotic for ischemic stroke: Yes Exam - Constitutional Vitals: Temp Pulse Resp BP Pulse Ox 98.0 F 78 18 150/89 98 07/26/18 05:44 09/11/17 05:44 09/11/17 05:44 09/11/17 05:44 09/11/17 05:44 General appearance: Present: no acute distress, well-nourished - EENT Eyes: Present: PERRL ENT: hearing intact, clear oral mucosa - Neck Neck: Present: supple, normal ROM - Respiratory Respiratory effort: normal Respiratory: bilateral: CTA - Cardiovascular Heart Sounds: Present: S1 & S2. Absent: rub, click - Extremities Extremities: pulses symmetrical, No edema Peripheral Pulses: within normal limits - Abdominal General gastrointestinal: Present: soft, non-tender, non-distended, normal bowel sounds Male genitourinary: Present: normal - Integumentary Integumentary: Present: clear, warm, dry - Musculoskeletal Musculoskeletal: gait normal, strength equal bilaterally - Psychiatric Psychiatric: appropriate mood/affect, intact judgment & insight - Neurologic Neurologic: CNII-XII intact, moves all extremities Plan Activity: advance as tolerated Weight Bearing Status: Weight Bear as Tolerated Diet: low fat, low cholesterol, low salt Follow up with: PRIMARY CARE, [Primary Care Provider] - 3-5 Days CARIDAD GALLAGHER MD [Staff Physician] - 7 Days Prescriptions: Apixaban [Eliquis] 5 mg PO BID #60 tablet Aspirin [Aspirin TAB] 325 mg PO DAILY #30 tablet AtorvaSTATin [Lipitor] 80 mg PO QHS #30 tablet Clopidogrel [Plavix] 75 mg PO QDAY #30 tablet Furosemide [Lasix] 20 mg PO DAILY #30 tablet Lisinopril [Zestril] 30 mg PO DAILY #30 tablet Metoprolol Tartrate 75 mg PO DAILY #30 tablet NIFEdipine XL [Procardia Xl] 60 mg PO QDAY #30 tablet Spironolactone 25 mg PO DAILY #30 tablet
[2017-09-11] MEDS ORDERED: LOPRESSOR PO SCH (10:00)
[2017-09-11] MEDS ORDERED: ZESTRIL PO SCH (10:00)
[2017-09-11 12:26] VITALS: BP 138/82
== END 2017-09-11 12:50 | disposition home health service (06) | DRG 62 ==
LOC: ED 21:06 → CC1 23:11 → 3A 09-10 15:17
PROVIDERS: ADMIT Internal Medicine; ATTEND Hospitalist
DX: I63.9 Cerebral infarction, unspecified (principal); G81.94 Hemiplegia, unspecified affecting left nondominant side; I50.20 Unspecified systolic (congestive) heart failure; I42.9 Cardiomyopathy, unspecified; F14.10 Cocaine abuse, uncomplicated; I11.0 Hypertensive heart disease with heart failure; E66.9 Obesity, unspecified; Z91.14 Patient's other noncompliance with medication regimen; Z68.33 Body mass index [BMI] 33.0-33.9, adult; Z88.1 Allergy status to other antibiotic agents; Z79.899 Other long term (current) drug therapy
CPT/HCPCS: 36415; 70450; 70544; 70551; 80048; 80061; 80307; 82962; 84443; 84484; 85025; 85610; 85670; 85730; 93005; 93010; 93306; 93880; 96374; 96375; 96376; A9270-GY; J1650; J2997; J7050

== ENCOUNTER 2017-09-28 17:43 | Inpatient (IN) | payer MEDICARE, OTHER ==
[2017-09-28] MEDS ORDERED: ASPIRIN PO ONE (17:54)
--- NOTE | 2017-09-28 18:16 | Emergency Department Report ---
ED Neuro Deficit HPI - General Chief Complaint: Chest Pain Stated Complaint: CHEST PAINS/SOB Time Seen by Provider: 09/28/17 18:09 Source: patient, old records reviewed Mode of arrival: Ambulatory Limitations: No Limitations - History of Present Illness Initial Comments: 57-year-old male with a past medical history of hypertension, cocaine abuse, and acute CVA with left-sided weakness treated with TPA here on 09/08/2017 presents to the hospital initially with complaint of chest pain and developed a neurologic deficit while in triage. Shortly after triage patient became confused, developed an expressive aphasia, and left sided weakness. Patient is oriented only to self "where am I" when initially questioned. Denies headache Pt had a neg MRI/MRA for acute cva during last visit - Related Data Home Medications: Previous Rx's Medication Instructions Recorded Last Taken Type Aspirin [Aspirin TAB] 325 mg PO DAILY #30 tablet 09/11/17 Unknown Rx AtorvaSTATin [Lipitor] 80 mg PO QHS #30 tablet 09/11/17 Unknown Rx Clopidogrel [Plavix] 75 mg PO QDAY #30 tablet 09/11/17 Unknown Rx Furosemide [Lasix] 20 mg PO DAILY #30 tablet 09/11/17 Unknown Rx Lisinopril [Zestril] 30 mg PO DAILY #30 tablet 09/11/17 Unknown Rx Metoprolol Tartrate 75 mg PO DAILY #30 tablet 09/11/17 Unknown Rx NIFEdipine XL [Procardia Xl] 60 mg PO QDAY #30 tablet 09/11/17 Unknown Rx Spironolactone 25 mg PO DAILY #30 tablet 09/11/17 Unknown Rx Allergies/Adverse Reactions: Allergies Allergy/AdvReac Type Severity Reaction Status Date / Time amoxicillin [From Augmentin] Allergy Hives Verified 09/09/17 13:30 clavulanic acid Allergy Hives Verified 09/09/17 13:30 [From Augmentin] ED Review of Systems ROS: Stated complaint: CHEST PAINS/SOB Other details as noted in HPI Comment: Unobtainable due to pts medical conditions ED Past Medical Hx - Past Medical History Hx Hypertension: Yes Hx CVA: Yes Hx Congestive Heart Failure: Yes - Social History Smoking Status: Former Smoker Substance Use Type: None - Medications Home Medications: Home Medications Medication Instructions Recorded Confirmed Last Taken Type Aspirin [Aspirin TAB] 325 mg PO DAILY #30 tablet 09/11/17 09/28/17 Unknown Rx AtorvaSTATin [Lipitor] 80 mg PO QHS #30 tablet 09/11/17 09/28/17 Unknown Rx Clopidogrel [Plavix] 75 mg PO QDAY #30 tablet 09/11/17 09/28/17 Unknown Rx Furosemide [Lasix] 20 mg PO DAILY #30 tablet 09/11/17 09/28/17 Unknown Rx Lisinopril [Zestril] 30 mg PO DAILY #30 tablet 09/11/17 09/28/17 Unknown Rx Metoprolol Tartrate 75 mg PO DAILY #30 tablet 09/11/17 09/28/17 Unknown Rx NIFEdipine XL [Procardia Xl] 60 mg PO QDAY #30 tablet 09/11/17 09/28/17 Unknown Rx Spironolactone 25 mg PO DAILY #30 tablet 09/11/17 09/28/17 Unknown Rx ED Neuro Physical Exam - General Limitations: No Limitations Suspected Stroke: Yes - NIHSS Assessment Interval: Baseline 1a. Level of Consciousness: alert 1b. LOC Questions: answers correctly 1c. LOC Commands: performs tasks correctly 2. Best Gaze: normal 3. Visual: partial hemianopia (left field deficet) 4. Facial Palsy: normal symmetrical movement 5b. Motor Arm Right: no drift 5a. Motor Arm Left: some gravity effort 6a. Motor Leg Left: no gravity effort 6b. Motor Leg Right: no drift 7. Limb Ataxia: present 1 limb 8. Sensory: severe/total sensory loss (left arm and leg) 9. Best Language: no aphasia 10. Dysarthria: mild/moderate dysarthria 11. Extinction/Inattention: no abnormality Total Score: 10 Stroke Severity: Moderate Stroke - Other Other exam information: General: No limitations, patient is alert in no acute distress Head exam: Atraumatic, normocephalic Eyes exam: Normal appearance, pupils equal reactive to light, extraocular movements intact ENT: Moist mucous membrane, normal oropharynx Neck exam: Normal inspection, full range of motion, no meningismus nontender Respiratory exam: Clear to auscultation bilateral, no wheezes, rales, crackles Cardiovascular: Normal rate and rhythm, normal heart sounds Abdomen: Soft, nondistended, and nontender, with normal bowel sounds, no rebound, or guarding Extremity: normal inspection no deformity Back: Normal Inspection Neurologic: See NIHSS exam Psychiatric: normal affect, normal mood Skin: Warm, dry, intact ED Course Vital Signs 09/28/17 09/28/17 09/28/17 17:51 18:54 19:20 Temperature 98.1 F Pulse Rate 94 H 75 74 Pulse Rate [ 74 Right Arm] Respiratory 20 16 Rate Respiratory 16 Rate [Right Arm ] Blood Pressure 167/95 164/98 Blood Pressure 164/98 [Right Arm] Blood Pressure 170/95 [Right] O2 Sat by Pulse 99 97 Oximetry O2 Sat by Pulse 98 Oximetry [ Right Arm] 09/28/17 09/28/17 09/28/17 19:22 19:40 19:45 Temperature Pulse Rate 74 78 80 Pulse Rate [ Right Arm] Respiratory 20 17 Rate Respiratory Rate [Right Arm ] Blood Pressure 164/98 162/87 Blood Pressure [Right Arm] Blood Pressure 162/87 [Right] O2 Sat by Pulse 98 98 Oximetry O2 Sat by Pulse Oximetry [ Right Arm] 09/28/17 09/28/17 09/28/17 19:59 20:00 20:15 Temperature Pulse Rate 74 72 Pulse Rate [ Right Arm] Respiratory 20 20 12 Rate Respiratory Rate [Right Arm ] Blood Pressure 169/96 Blood Pressure [Right Arm] Blood Pressure 167/91 [Right] O2 Sat by Pulse 98 97 96 Oximetry O2 Sat by Pulse Oximetry [ Right Arm] - Consultations Consultation #1: 09/28/17 18:19 case d/w Dr Ivan, neuro attending will evaluate pt upon return return from ct 09/28/17 19:07 after examining patient, Dr. Ivan states that patient prefers to receive TPA after risks were explained and therefore it was ordered - Lab Data Result diagrams: 09/28/17 18:17 09/28/17 18:17 Lab Results 09/28/17 09/28/17 09/28/17 Range/Units 18:10 18:17 18:17 WBC 5.7 (4.5-11.0) K/mm3 RBC 4.61 (3.65-5.03) M/mm3 Hgb 14.0 (11.8-15.2) gm/dl Hct 41.0 (35.5-45.6) % MCV 89 (84-94) fl MCH 30 (28-32) pg MCHC 34 (32-34) % RDW 14.3 (13.2-15.2) % Plt Count 145 (140-440) K/mm3 Lymph % (Auto) 23.7 (13.4-35.0) % [place] % (Auto) 10.7 H (0.0-7.3) % Eos % (Auto) 3.3 (0.0-4.3) % Baso % (Auto) 2.6 H (0.0-1.8) % Lymph # 1.4 (1.2-5.4) K/mm3 [place] # 0.6 (0.0-0.8) K/mm3 Eos # 0.2 (0.0-0.4) K/mm3 Baso # 0.1 (0.0-0.1) K/mm3 Seg Neutrophils % 59.7 (40.0-70.0) % Seg Neutrophils # 3.4 (1.8-7.7) K/mm3 PT (12.2-14.9) Sec. INR (0.87-1.13) APTT (24.2-36.6) Sec. Thrombin Time (15.1-19.6) Sec. Sodium 141 (137-145) mmol/L Potassium 4.5 (3.6-5.0) mmol/L Chloride 103.5 (98-107) mmol/L Carbon Dioxide 24 (22-30) mmol/L Anion Gap 18 mmol/L BUN 19 (9-20) mg/dL Creatinine 1.5 (0.8-1.5) mg/dL Estimated GFR 58 ml/min BUN/Creatinine Ratio 13 % Glucose 89 (75-100) mg/dL POC Glucose 79 (70-105) Calcium 9.0 (8.4-10.2) mg/dL Total Creatine Kinase (55-170) units/L CK-MB (CK-2) (0.0-4.0) ng/mL CK-MB (CK-2) Rel Index (0-4) Troponin T < 0.010 (0.00-0.029) ng/mL 09/28/17 09/28/17 09/28/17 Range/Units 18:17 18:17 18:17 WBC (4.5-11.0) K/mm3 RBC (3.65-5.03) M/mm3 Hgb (11.8-15.2) gm/dl Hct (35.5-45.6) % MCV (84-94) fl MCH (28-32) pg MCHC (32-34) % RDW (13.2-15.2) % Plt Count (140-440) K/mm3 Lymph % (Auto) (13.4-35.0) % [place] % (Auto) (0.0-7.3) % Eos % (Auto) (0.0-4.3) % Baso % (Auto) (0.0-1.8) % Lymph # (1.2-5.4) K/mm3 [place] # (0.0-0.8) K/mm3 Eos # (0.0-0.4) K/mm3 Baso # (0.0-0.1) K/mm3 Seg Neutrophils % (40.0-70.0) % Seg Neutrophils # (1.8-7.7) K/mm3 PT 12.8 (12.2-14.9) Sec. INR 0.92 (0.87-1.13) APTT 24.7 (24.2-36.6) Sec. Thrombin Time 16.7 (15.1-19.6) Sec. Sodium (137-145) mmol/L Potassium (3.6-5.0) mmol/L Chloride (98-107) mmol/L Carbon Dioxide (22-30) mmol/L Anion Gap mmol/L BUN (9-20) mg/dL Creatinine (0.8-1.5) mg/dL Estimated GFR ml/min BUN/Creatinine Ratio % Glucose (75-100) mg/dL POC Glucose (70-105) Calcium (8.4-10.2) mg/dL Total Creatine Kinase 200 H (55-170) units/L CK-MB (CK-2) 1.6 (0.0-4.0) ng/mL CK-MB (CK-2) Rel Index 0.8 (0-4) Troponin T (0.00-0.029) ng/mL - EKG Data -: EKG Interpreted by Me EKG shows normal: sinus rhythm, axis (qrs -5), QRS complexes (qrsd 96), ST-T waves (lat t inv) Rate: normal (87) - Radiology Data Radiology results: report reviewed FINAL REPORT EXAM: CT HEAD/BRAIN WO CON HISTORY: neuro deficits lt; 6hrs or sx present upon awakening TECHNIQUE: CT was performed from the foramen magnum through the vertex in the axial plane without the use of intravenous contrast. PRIORS: 09/08/2017 FINDINGS: The baum/white matter attenuation pattern is normal. There is no mass lesion or mass effect. There are no abnormal extra-axial fluid collections. There is no evidence of acute intracranial hemorrhage or infarct. The ventricles are of normal size and configuration. The skull and orbits are unremarkable. The visualized paranasal sinuses are clear. IMPRESSION: Normal CT of the head. - Medical Decision Making acute cva ct head neg tpa given after consultation with Neurologist chest pain ekg unchanged initial trop neg pt will require ICU admission - Differential Diagnosis CVA, ICH, cephalopathy, intracranial mass, mi, atypical cp Critical Care Time: No Critical care attestation.: If time is entered above; I have spent that time in minutes in the direct care of this critically ill patient, excluding procedure time. ED Disposition Clinical Impression: Acute CVA (cerebrovascular accident), HTN (hypertension), Chest pain Disposition: DC-09 OP ADMIT IP TO THIS HOSP Is pt being admited?: Yes Condition: Stable Time of Disposition: 19:10 (Dr gonzalez/hosp)
[2017-09-28 18:33] LABS: Basophils # (Auto) 0.1 K/mm3 (0.0-0.1); Basophils % (Auto) 2.6 % (0.0-1.8); Eosinophils # (Auto) 0.2 K/mm3 (0.0-0.4); Eosinophils % (Auto) 3.3 % (0.0-4.3); Lymphocytes # (Auto) 1.4 K/mm3 (1.2-5.4); Lymphocytes % (Auto) 23.7 % (13.4-35.0); Mean Corpuscular HGB Conc 34 % (32-34); Mean Corpuscular Hemoglobin 30 pg (28-32); Mean Corpuscular Volume 89 fl (84-94); Monocytes # (Auto) 0.6 K/mm3 (0.0-0.8); Monocytes % (Auto) 10.7 % (0.0-7.3); Platelet Count 145 K/mm3 (140-440); Red Blood Count 4.61 M/mm3 (3.65-5.03); Red Cell Distribution Width 14.3 % (13.2-15.2)
--- NOTE | 2017-09-28 18:35 | Cat Scan Report ---
FINAL REPORT EXAM: CT HEAD/BRAIN WO CON HISTORY: neuro deficits < 6hrs or sx present upon awakening TECHNIQUE: CT was performed from the foramen magnum through the vertex in the axial plane without the use of intravenous contrast. PRIORS: 09/08/2017 FINDINGS: The baum/white matter attenuation pattern is normal. There is no mass lesion or mass effect. There are no abnormal extra-axial fluid collections. There is no evidence of acute intracranial hemorrhage or infarct. The ventricles are of normal size and configuration. The skull and orbits are unremarkable. The visualized paranasal sinuses are clear. IMPRESSION: Normal CT of the head.
[2017-09-28 18:44] LABS: INR 0.92 (0.87-1.13); Partial Thromboplastin Time 24.7 Sec. (24.2-36.6)
[2017-09-28 18:50] LABS: BUN/Creatinine Ratio 13; Blood Urea Nitrogen 19 mg/dL (9-20); Hemolysis Index 69
[2017-09-28 18:52] LABS: Creatine Kinase MB 1.6 ng/mL (0.0-4.0)
[2017-09-28] MEDS ORDERED: ACTIVASE ONE (18:54)
[2017-09-28] MEDS ORDERED: NACL 0.9% IV ONE (19:05)
[2017-09-28] MEDS ORDERED: ACTIVASE IV ONE ×2 (19:05)
[2017-09-28 21:20] LABS: Amphetamine Screen,Urine PRESUMPTIVE NEGATIVE; Benzodiazepines Screen,Urine PRESUMPTIVE NEGATIVE; Cannabinoid Screen,Urine PRESUMPTIVE NEGATIVE; Methadone Screen,Urine PRESUMPTIVE NEGATIVE; Opiate Screen,Urine PRESUMPTIVE NEGATIVE
[2017-09-28 21:31] LABS: Cocaine Screen,Urine PRESUMPTIVE POSITIVE
[2017-09-28] MEDS ORDERED: MORPHINE IV PRN (21:36)
[2017-09-28] MEDS ORDERED: SODIUM CHLORIDE FLUSH SYRINGE 10 ML IV PRN ×2 (21:36→21:43)
[2017-09-28] MEDS ORDERED: TYLENOL PO PRN (21:36)
[2017-09-28] MEDS ORDERED: ZOFRAN IV PRN (21:36)
--- NOTE | 2017-09-28 21:36 | History and Physical Report ---
History of Present Illness Date of examination: 09/28/17 Date of admission: 09/28/17 19:11 Medications and Allergies Allergies Allergy/AdvReac Type Severity Reaction Status Date / Time amoxicillin [From Augmentin] Allergy Hives Verified 09/09/17 13:30 clavulanic acid Allergy Hives Verified 09/09/17 13:30 [From Augmentin] Home Medications Medication Instructions Recorded Confirmed Last Taken Type Aspirin [Aspirin TAB] 325 mg PO DAILY #30 tablet 09/11/17 09/28/17 Unknown Rx AtorvaSTATin [Lipitor] 80 mg PO QHS #30 tablet 09/11/17 09/28/17 Unknown Rx Clopidogrel [Plavix] 75 mg PO QDAY #30 tablet 09/11/17 09/28/17 Unknown Rx Furosemide [Lasix] 20 mg PO DAILY #30 tablet 09/11/17 09/28/17 Unknown Rx Lisinopril [Zestril] 30 mg PO DAILY #30 tablet 09/11/17 09/28/17 Unknown Rx Metoprolol Tartrate 75 mg PO DAILY #30 tablet 09/11/17 09/28/17 Unknown Rx NIFEdipine XL [Procardia Xl] 60 mg PO QDAY #30 tablet 09/11/17 09/28/17 Unknown Rx Spironolactone 25 mg PO DAILY #30 tablet 09/11/17 09/28/17 Unknown Rx Exam - Constitutional Vitals: Temp Pulse Resp BP Pulse Ox 98.1 F 78 22 150/92 100 09/28/17 17:51 09/28/17 21:33 09/28/17 21:33 09/28/17 21:33 09/28/17 21:33 Results - Labs CBC & Chem 7: 09/28/17 18:17 09/28/17 18:17 Labs: Laboratory Last Values WBC 5.7 K/mm3 (4.5-11.0) 09/28/17 18:17 RBC 4.61 M/mm3 (3.65-5.03) 09/28/17 18:17 Hgb 14.0 gm/dl (11.8-15.2) 09/28/17 18:17 Hct 41.0 % (35.5-45.6) 09/28/17 18:17 MCV 89 fl (84-94) 09/28/17 18:17 MCH 30 pg (28-32) 09/28/17 18:17 MCHC 34 % (32-34) 09/28/17 18:17 RDW 14.3 % (13.2-15.2) 09/28/17 18:17 Plt Count 145 K/mm3 (140-440) 09/28/17 18:17 Lymph % (Auto) 23.7 % (13.4-35.0) 09/28/17 18:17 [place] % (Auto) 10.7 % (0.0-7.3) H 09/28/17 18:17 Eos % (Auto) 3.3 % (0.0-4.3) 09/28/17 18:17 Baso % (Auto) 2.6 % (0.0-1.8) H 09/28/17 18:17 Lymph # 1.4 K/mm3 (1.2-5.4) 09/28/17 18:17 [place] # 0.6 K/mm3 (0.0-0.8) 09/28/17 18:17 Eos # 0.2 K/mm3 (0.0-0.4) 09/28/17 18:17 Baso # 0.1 K/mm3 (0.0-0.1) 09/28/17 18:17 Seg Neutrophils % 59.7 % (40.0-70.0) 09/28/17 18:17 Seg Neutrophils # 3.4 K/mm3 (1.8-7.7) 09/28/17 18:17 PT 12.8 Sec. (12.2-14.9) 09/28/17 18:17 INR 0.92 (0.87-1.13) 09/28/17 18:17 APTT 24.7 Sec. (24.2-36.6) 09/28/17 18:17 Thrombin Time 16.7 Sec. (15.1-19.6) 09/28/17 18:17 Sodium 141 mmol/L (137-145) 09/28/17 18:17 Potassium 4.5 mmol/L (3.6-5.0) 09/28/17 18:17 Chloride 103.5 mmol/L (98-107) 09/28/17 18:17 Carbon Dioxide 24 mmol/L (22-30) 09/28/17 18:17 Anion Gap 18 mmol/L 09/28/17 18:17 BUN 19 mg/dL (9-20) 09/28/17 18:17 Creatinine 1.5 mg/dL (0.8-1.5) 09/28/17 18:17 Estimated GFR 58 ml/min 09/28/17 18:17 BUN/Creatinine Ratio 13 % 09/28/17 18:17 Glucose 89 mg/dL (75-100) 09/28/17 18:17 POC Glucose 79 (70-105) 09/28/17 18:10 Calcium 9.0 mg/dL (8.4-10.2) 09/28/17 18:17 Total Creatine Kinase 200 units/L (55-170) H 09/28/17 18:17 CK-MB (CK-2) 1.6 ng/mL (0.0-4.0) 09/28/17 18:17 CK-MB (CK-2) Rel Index 0.8 (0-4) 09/28/17 18:17 Troponin T < 0.010 ng/mL (0.00-0.029) 09/28/17 18:17 Urine Opiates Screen Presumptive negative 09/28/17 20:55 Urine Methadone Screen Presumptive negative 09/28/17 20:55 Ur Barbiturates Screen Presumptive negative 09/28/17 20:55 Ur Phencyclidine Scrn Presumptive negative 09/28/17 20:55 Ur Amphetamines Screen Presumptive negative 09/28/17 20:55 U Benzodiazepines Scrn Presumptive negative 09/28/17 20:55 Urine Cocaine Screen Presumptive positive 09/28/17 20:55 U Marijuana (THC) Screen Presumptive negative 09/28/17 20:55 Drugs of Abuse Note Disclamer 09/28/17 20:55
[2017-09-28] MEDS ORDERED: PRAVACHOL PO SCH (22:00)
[2017-09-28] MEDS: SODIUM CHLORIDE FLUSH SYRINGE 10 ML IV SCH (22:14)
[2017-09-28] MEDS: PEPCID IV SCH (22:14)
[2017-09-28] MEDS: ZESTRIL PO SCH (22:55)
[2017-09-29 04:11] LABS: Hematocrit 41.1 % (35.5-45.6); Hemoglobin 13.4 gm/dl (11.8-15.2); Mean Corpuscular Hemoglobin 30 pg (28-32); Mean Corpuscular Volume 91 fl (84-94)
[2017-09-29 04:12] LABS: Basophils % (Auto) 0.5 % (0.0-1.8); Eosinophils # (Auto) 0.3 K/mm3 (0.0-0.4); Eosinophils % (Auto) 5.2 % (0.0-4.3); Lymphocytes # (Auto) 1.4 K/mm3 (1.2-5.4); Lymphocytes % (Auto) 26.6 % (13.4-35.0); Mean Corpuscular HGB Conc 33 % (32-34); Monocytes # (Auto) 0.6 K/mm3 (0.0-0.8); Monocytes % (Auto) 10.9 % (0.0-7.3); Platelet Count 138 K/mm3 (140-440); Red Cell Distribution Width 14.1 % (13.2-15.2)
[2017-09-29 04:45] LABS: Alanine Aminotransferase 11 units/L (7-56); Albumin 3.8 g/dL (3.9-5); BUN/Creatinine Ratio 14; Blood Urea Nitrogen 17 mg/dL (9-20); Calcium 8.5 mg/dL (8.4-10.2); Chol/HDL Ratio 4.47 %; HDL Cholesterol 44 mg/dL (40-59); Hemolysis Index 21; LDL Cholesterol,Direct 150 mg/dL (50-130)
--- NOTE | 2017-09-29 07:10 | Event Note ---
Date: 09/28/17 See dictated H/p in reports Acute CVA S/p TPA
[2017-09-29] MEDS: LOPRESSOR PO SCH (09:50)
[2017-09-29] MEDS: ALDACTONE PO SCH (09:50)
[2017-09-29] MEDS: ZESTRIL PO SCH (09:50)
[2017-09-29] MEDS: LASIX PO SCH (09:50)
[2017-09-29] MEDS: SODIUM CHLORIDE FLUSH SYRINGE 10 ML IV SCH ×2 (09:50→23:16)
[2017-09-29] MEDS: PEPCID IV SCH ×2 (09:50→23:16)
[2017-09-29] MEDS: PROCARDIA XL PO SCH (09:50)
--- NOTE | 2017-09-29 09:58 | History and Physical Report ---
CHIEF COMPLAINT: 1. Left-sided weakness while in the triage. 2. Chest pain for 1 day. HISTORY OF PRESENT ILLNESS: A 57-year-old male with history of hypertension, congestive heart failure, hyperlipidemia comes in for chest pain of 1-day duration. Chest pain is retrosternal, left precordial. No radiation. While in the triage, the patient became confused and developed left-sided weakness and dysarthria. This is the second episode. First episode happened in August and received tPA. During the second episode also the patient got tPA after teleneurology consultation by Dr. Sesar Dunn. The patient was treated as code stroke. The patient continues to have weakness on the left upper and left lower extremities during my examination. No exacerbating or relieving factors. PAST MEDICAL HISTORY: Significant for coronary artery disease, hyperlipidemia, congestive heart failure, hypertension. CURRENT MEDICATIONS: Atorvastatin 80 mg daily, Plavix 75 mg daily, Lasix 20 mg p.o. daily, lisinopril 30 mg p.o. daily, metoprolol 75 mg p.o. daily, Procardia 60 mg p.o. daily, spironolactone 25 mg p.o. daily. ALLERGIES: AUGMENTIN and AMOXICILLIN. PAST SURGICAL HISTORY: Unavailable. SOCIAL HISTORY: Former smoker. FAMILY HISTORY: Hypertension. REVIEW OF SYSTEMS: Significant for right-sided weakness and dysarthria. Left-sided chest pain also. No shortness of breath. A 14-point review of systems done. PHYSICAL EXAMINATION: GENERAL: Elderly male, cooperative during examination. VITAL SIGNS: Blood pressure is 143/83, temperature is 98.7, pulse is 70, respirations are 17. HEENT: Unremarkable. Pupils are equal and reactive. NECK: Supple, no lymphadenopathy, no thyromegaly. LUNGS: Clear to auscultation and percussion. Good air entry. CARDIOVASCULAR: S1-S2 heard. No gallop, no murmur, no rub. Apical impulse in left fifth intercostal space and midclavicular line. ABDOMEN: Soft and benign. No hepatosplenomegaly, no guarding, no rigidity. Hernial orifices are normal. EXTREMITIES: Good pedal pulses. No pedal edema. CENTRAL NERVOUS SYSTEM: Alert and oriented x 4. Left upper extremity and left lower extremity 3/5 power. Dysarthria present. Sensory system is normal. Reflexes are brisk on the left side. SKIN: Normal. LABORATORY DATA: EKG shows normal sinus rhythm, heart rate of [address] of the head shows a normal CT. EMERGENCY ROOM COURSE: The patient was given tPA after consulting the teleneurologist. ASSESSMENT AND PLAN: 1. Acute cerebrovascular accident, status post tissue plasminogen activator. The patient is being admitted to ICU. Cerebrovascular accident workup including MRI, MRA, carotid duplex scan, and echocardiogram. Neurology, Dr. Harp consulted. 2. Chest pain. We will defer the Lexiscan for the time being, may do the Lexiscan on Friday. 3. Hypertension. Continue antihypertensives, especially lisinopril and nifedipine and metoprolol. 4. Coronary artery disease. Continue Plavix which may be useful for his acute cerebrovascular too. 5. Hyperlipidemia. Continue Lipitor. 6. Congestive heart failure. Continue Lasix. 7. Deep venous thrombosis prophylaxis, Lovenox 40 mg subcutaneously daily. CRITICAL CARE STATEMENT: The high probability of a clinically significant sudden or life-threatening deterioration of the pulmonary, cardiac, and renal systems required my full and direct attention, intervention, and personal management. The aggregate critical care time was 42 minutes. This time is in addition to time spent performing reported procedures, but includes the following, data review and interpretation, patient assessment and monitoring of vital signs, documentation, medication orders and management. JOB# [id number] MERLIN/JENNIFER
--- NOTE | 2017-09-29 11:19 | Progress Note ---
Assessment and Plan Stroke like symptom - acute CVA ruled out with negative Ct head, MRI/MRA - likely cocaine induced vasospasm - cont asp/statin - 2d echo had recently which showed dilated cardiomyopathy, will reassess EF - PT/OT eval Chest pain, likely cocaine induced vasospasm - negative CE, EKG - plan for stress test tomorrow Substance abuse, counselled Dilated cardiomyopathy with chronic systolic CHF - will reassess EF - cont asp/statin, compensated now DVT Px - lovenox sunqu Brief History: 57 year old msle with history of hypertension, previous TIA, cocaine use, presented on 09/28 with chest pain and SOB, and then progressed to diaphoresis, dizziness, blurred vision, and left sided weakness and numbness witnessed in the ER. He was given TPA and has recovered left arm function but not left leg strength. MRI and MRA are unremarkable. Subjective Date of service: 09/29/17 Interval history: Pt seen and examined c/o mild headache states took cocaine a day prior to admission Objective - Constitutional Vitals: Vital Signs - 12hr 09/28/17 09/29/17 09/29/17 23:30 00:00 00:30 Temperature Pulse Rate 79 85 81 Pulse Rate [ Right Arm] Respiratory 16 21 22 Rate Respiratory Rate [Right Arm ] Blood Pressure 156/85 144/82 143/65 Blood Pressure [Right Arm] O2 Sat by Pulse 97 96 97 Oximetry O2 Sat by Pulse Oximetry [ Right Arm] 09/29/17 09/29/17 09/29/17 01:01 01:30 02:00 Temperature Pulse Rate 81 75 74 Pulse Rate [ Right Arm] Respiratory 18 18 21 Rate Respiratory Rate [Right Arm ] Blood Pressure 143/74 134/79 145/87 Blood Pressure [Right Arm] O2 Sat by Pulse 96 95 95 Oximetry O2 Sat by Pulse Oximetry [ Right Arm] 09/29/17 09/29/17 09/29/17 02:31 03:00 03:30 Temperature Pulse Rate 73 75 74 Pulse Rate [ Right Arm] Respiratory 19 25 H 19 Rate Respiratory Rate [Right Arm ] Blood Pressure 154/88 154/88 134/88 Blood Pressure [Right Arm] O2 Sat by Pulse 95 95 95 Oximetry O2 Sat by Pulse Oximetry [ Right Arm] 09/29/17 09/29/17 09/29/17 04:01 04:30 05:00 Temperature Pulse Rate 78 70 70 Pulse Rate [ Right Arm] Respiratory 18 17 15 Rate Respiratory Rate [Right Arm ] Blood Pressure 139/89 143/83 145/86 Blood Pressure [Right Arm] O2 Sat by Pulse 95 96 Oximetry O2 Sat by Pulse Oximetry [ Right Arm] 09/29/17 09/29/17 09/29/17 05:30 06:00 06:14 Temperature 98.7 F Pulse Rate 69 78 Pulse Rate [ Right Arm] Respiratory 18 22 Rate Respiratory Rate [Right Arm ] Blood Pressure 138/94 143/85 Blood Pressure [Right Arm] O2 Sat by Pulse 95 93 Oximetry O2 Sat by Pulse Oximetry [ Right Arm] 09/29/17 09/29/17 09/29/17 07:00 08:00 09:00 Temperature Pulse Rate Pulse Rate [ 73 75 77 Right Arm] Respiratory Rate Respiratory 19 18 17 Rate [Right Arm ] Blood Pressure Blood Pressure 142/91 136/82 138/110 [Right Arm] O2 Sat by Pulse Oximetry O2 Sat by Pulse 94 94 96 Oximetry [ Right Arm] 09/29/17 10:00 Temperature Pulse Rate Pulse Rate [ 75 Right Arm] Respiratory Rate Respiratory 18 Rate [Right Arm ] Blood Pressure Blood Pressure 140/106 [Right Arm] O2 Sat by Pulse Oximetry O2 Sat by Pulse 96 Oximetry [ Right Arm] General appearance: Present: no acute distress, well-nourished - EENT Eyes: PERRL, EOM intact ENT: hearing intact, clear oral mucosa Ears: bilateral: normal - Neck Neck: supple, normal ROM - Respiratory Respiratory effort: normal Respiratory: bilateral: CTA - Cardiovascular Rhythm: regular Heart Sounds: Present: S1 & S2. Absent: gallop, rub Extremities: pulses intact, No edema, normal color, Full ROM - Gastrointestinal General gastrointestinal: Present: soft, non-tender, non-distended, normal bowel sounds - Integumentary Integumentary: clear, warm, dry - Musculoskeletal Musculoskeletal: 1, strength equal bilaterally - Neurologic Neurologic: moves all extremities - Psychiatric Psychiatric: memory intact, appropriate mood/affect, intact judgment & insight - Labs CBC & Chem 7: 09/29/17 03:05 09/29/17 03:05 Labs: Abnormal lab results 09/28/17 09/28/17 09/29/17 Range/Units 18:17 18:17 03:05 Plt Count 138 L (140-440) K/mm3 [place] % (Auto) 10.7 H 10.9 H (0.0-7.3) % Eos % (Auto) 5.2 H (0.0-4.3) % Baso % (Auto) 2.6 H (0.0-1.8) % Total Creatine Kinase 200 H (55-170) units/L Albumin (3.9-5) g/dL LDL Cholesterol Direct (50-130) mg/dL 09/29/17 Range/Units 03:05 Plt Count (140-440) K/mm3 [place] % (Auto) (0.0-7.3) % Eos % (Auto) (0.0-4.3) % Baso % (Auto) (0.0-1.8) % Total Creatine Kinase (55-170) units/L Albumin 3.8 L (3.9-5) g/dL LDL Cholesterol Direct 150 H (50-130) mg/dL - Imaging and cardiology CT Scan - head: report reviewed MRI - head: report reviewed
--- NOTE | 2017-09-29 13:46 | Cat Scan Report ---
CT HEAD WITHOUT CONTRAST: HISTORY: Headache, status post TPA therapy. TECHNIQUE: Sequential 2.5mm CT images. COMPARISON: 09/28/17. FINDINGS: Cerebral Parenchyma: Within normal limits. Cerebellum: Within normal limits. Brainstem: Within normal limits. Ventricles: Normal. Sella: Normal. Extra-axial spaces: Normal. Basal Cisterns: Normal. Intracranial Hemorrhage: None. Midline Shift: None. Calvarium: Normal. Sinuses: Normal. Mastoid Air Cells: Normal. Visualized Orbits: Normal. IMPRESSION: Cranial CT scan within normal limits.
[2017-09-29] MEDS: PERCOCET 5/325 PO PRN ×2 (13:51→19:38)
--- NOTE | 2017-09-29 13:52 | Magnetic Resonance Report ---
MRI OF THE BRAIN WITHOUT CONTRAST: HISTORY: CVA PROCEDURE: Multiplanar, multisequence MR imaging of the brain without IV contrast was performed. FINDINGS: Compared to the CT head without contrast performed 09/28/17. The brain parenchyma signal intensity and its pritchard white interface are within normal limits on all sequences. No evidence for acute ischemia, hemorrhage or mass. No chronic infarct or extra-axial fluid collection. The midline structures are central. The basal cisterns are patent. Normal ventricular size. The orbital cavities and sella turcica demonstrate no abnormality. The visualized paranasal sinuses and mastoid air cells are well aerated. IMPRESSION: Unremarkable non-enhanced MRI of the brain.
--- NOTE | 2017-09-29 13:53 | Magnetic Resonance Report ---
MRA HEAD WITHOUT CONTRAST HISTORY: Stroke. [id number] imaging with MIP reformations of the [place] is submitted. The arteries appear widely patent and free of hemodynamically significant stenosis, aneurysm or dissection. Small bilateral posterior communicating arteries are noted. IMPRESSION: Unremarkable MRA head.
--- NOTE | 2017-09-29 15:05 | Consultation ---
History of Present Illness Consult date: 09/29/17 Requesting physician: ANDRY KEITA Reason for Consult: stroke History of present illness: 57 year old, right handed male with history of hypertension and previous TIA presented on 09/28/17 to ER with history of chest pressure and shortness of breath. He had a previous ER admission for left sided weakness in August,, received TPA and improved within several hours. As he was waiting to be seen in the waiting room he developed diaphoresis, palpitations, blurred vision and dizziness. He remembers awakening on a stretcher in a room of the ER, with left sided weakness and numbness, slurred speech. He was again given TPA and has regained movement in his arm, but not in leg. His speech has also improved. The patient has been taking ASA daily since August. Prior to that event he had had no cardiac or stroke-like symptoms. Notes recent personal and financial stress as risk factors. Urine cocaine screen was positive. Past History Past Medical History: hypertension, stroke Social history: . denies: smoking, alcohol abuse Family history: CAD, diabetes, hypertension, stroke Medications and Allergies Allergies Allergy/AdvReac Type Severity Reaction Status Date / Time amoxicillin [From Augmentin] Allergy Hives Verified 09/09/17 13:30 clavulanic acid Allergy Hives Verified 09/09/17 13:30 [From Augmentin] Home Medications Medication Instructions Recorded Confirmed Last Taken Type Aspirin [Aspirin TAB] 325 mg PO DAILY #30 tablet 09/11/17 09/28/17 Unknown Rx AtorvaSTATin [Lipitor] 80 mg PO QHS #30 tablet 09/11/17 09/28/17 Unknown Rx Clopidogrel [Plavix] 75 mg PO QDAY #30 tablet 09/11/17 09/28/17 Unknown Rx Furosemide [Lasix] 20 mg PO DAILY #30 tablet 09/11/17 09/28/17 Unknown Rx Lisinopril [Zestril] 30 mg PO DAILY #30 tablet 09/11/17 09/28/17 Unknown Rx Metoprolol Tartrate 75 mg PO DAILY #30 tablet 09/11/17 09/28/17 Unknown Rx NIFEdipine XL [Procardia Xl] 60 mg PO QDAY #30 tablet 09/11/17 09/28/17 Unknown Rx Spironolactone 25 mg PO DAILY #30 tablet 09/11/17 09/28/17 Unknown Rx Active Meds: Active Medications Acetaminophen (Tylenol) 650 mg PO Q4H PRN PRN Reason: Pain MILD(1-3)/Fever >100.5/GAGE Famotidine (Pepcid) 20 mg IV BID [facility] Last Admin: 09/29/17 09:50 Dose: 20 mg Furosemide (Lasix) 20 mg PO DAILY [facility] Last Admin: 09/29/17 09:50 Dose: Not Given Lisinopril (Zestril) 30 mg PO DAILY [facility] Last Admin: 09/29/17 09:50 Dose: Not Given Metoprolol Tartrate (Lopressor) 75 mg PO DAILY [facility] Last Admin: 09/29/17 09:50 Dose: Not Given Morphine Sulfate (Morphine) 2 mg IV Q4H PRN PRN Reason: Pain, Moderate (4-6) Nifedipine (Procardia Xl) 60 mg PO QDAY [facility] Last Admin: 09/29/17 09:50 Dose: Not Given Ondansetron HCl (Zofran) 4 mg IV Q8H PRN PRN Reason: Nausea And Vomiting Oxycodone/Acetaminophen (Percocet 5/325) 1 tab PO Q6H PRN PRN Reason: Pain, Moderate (4-6) Last Admin: 09/29/17 13:51 Dose: 1 tab Pravastatin Sodium (Pravachol) 40 mg PO QHS [facility] Last Admin: 09/28/17 22:55 Dose: 40 mg Sodium Chloride (Sodium Chloride Flush Syringe 10 Ml) 10 ml IV BID [facility] Last Admin: 09/29/17 09:50 Dose: 10 ml Sodium Chloride (Sodium Chloride Flush Syringe 10 Ml) 10 ml IV PRN PRN PRN Reason: LINE FLUSH Spironolactone (Aldactone) 25 mg PO DAILY@0800 [facility] Last Admin: 09/29/17 09:50 Dose: Not Given Review of Systems Constitutional: weight loss, no sweats, no night sweats, no anorexia, no weakness, no chronic headaches Ears, nose, mouth and throat: headache, no tinnitis, no decreased hearing, no vertigo Cardiovascular: chest pain, palpitations, lightheadedness, shortness of breath, high blood pressure, no orthopnea, no edema, no syncope Respiratory: shortness of breath, no cough, no cough with sputum, no congestion Gastrointestinal: no abdominal pain, no nausea, no vomiting, no diarrhea, no constipation Genitourinary Male: no dysuria, no urinary frequency, no urinary hesitancy Musculoskeletal: arm numbness/tingling, leg numbness/tingling, no neck stiffness , no neck pain Integumentary: no rash Neurological: paralysis, weakness, parathesias, numbness, headaches, change in speech, no head injury, no syncope, no tremors, no ataxia, no vertigo Physical Examination - Vital Signs Vital Signs: Vital Signs Temp Pulse Resp BP Pulse Ox 98.1 F 94 H 20 167/95 99 09/28/17 17:51 09/28/17 17:51 09/28/17 17:51 09/28/17 17:51 09/28/17 17:51 Resting comfortably in bed. HEENT - no inflammation or lesions. Neck supple, nom JVD. Chest - clear to auscultation. Heart - reg. rate. normal S-1, S-2. no murmur Abdomen - soft, nontender. Extremities - no CCE. Neurological - speech fluent, no dysarthria or slurring. 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 Face symmetric, V-1 thru V-3 intact bilaterally. Hearing intact. Tongue midline. Motor - 5/5 on the right. Left arm - 4+/5 deltoids, wrist hand and finger extensors. Left leg - 0/5 prox and distal extensors and flexors. Trace contraction in toes. Reflexes - trace on the right. LUE - +1, absent reflexes at knee and ankle. Sensory - Decreased touch qnd sharp in lower extremity. Hyperesthesia in left arm. Cerebellar - intact FTN, Larry and fine finger movements. gait not tested. - Assessment Assessment Interval: Baseline - Level of Consciousness 1a. Level of Consciousness: alert - LOC Questions 1b. LOC Questions: answers correctly - LOC Command 1c. LOC Commands: performs tasks correctly - Best Gaze 2. Best Gaze: normal - Visual 3. Visual: partial hemianopia (left field deficet) - Facial Palsy 4. Facial Palsy: normal symmetrical movement - Motor Arm 5b. Motor Arm Right: no drift - Motor Leg 6a. Motor Leg Left: no gravity effort - Limb Ataxia 7. Limb Ataxia: present 1 limb - Sensory 8. Sensory: severe/total sensory loss (left arm and leg) - Best Language 9. Best Language: no aphasia - Dysarthria 10. Dysarthria: mild/moderate dysarthria - Extinction and Inattention 11. Extinction/Inattention: no abnormality Results - Laboratory Findings CBC and BMP: 09/29/17 03:05 09/29/17 03:05 Abnormal Lab Findings: Abnormal Labs 09/28/17 09/28/17 09/29/17 18:17 18:17 03:05 Plt Count 138 L [place] % (Auto) 10.7 H 10.9 H Eos % (Auto) 5.2 H Baso % (Auto) 2.6 H Total Creatine Kinase 200 H Albumin LDL Cholesterol Direct 09/29/17 03:05 Plt Count [place] % (Auto) Eos % (Auto) Baso % (Auto) Total Creatine Kinase Albumin 3.8 L LDL Cholesterol Direct 150 H Assessment and Plan 57 year old msle with history of hypertension, previous TIA, cocaine use, presented on 09/28 with chest pain and SOB, and then progressed to diaphoresis, dizziness, blurred vision, and left sided weakness and numbness witnessed in the ER. He was given TPA and has recovered left arm function but not left leg strength. MRI and MRA are unremarkable. Events may have been triggered by hypertension and cocaine use. A small vessel subcortical event is most likely the cause of his clinical scenario. Futher recovery may still be possible. Rec - ciontinue ASA, Plavix, atorvastatin. Echocaardiogram Will check B-12 and TFTs Physical therapy consult.
[2017-09-29 19:13] LABS: Free T4 (Free Thyroxine) 1.07 ng/dL (0.76-1.46)
[2017-09-29] MEDS: HALFPRIN EC PO SCH (23:16)
[2017-09-30] MEDS ORDERED: LEXISCAN IV ONE ×2 (09:31→11:00)
[2017-09-30] MEDS: LOPRESSOR PO SCH (12:52)
[2017-09-30] MEDS: ZESTRIL PO SCH (12:53)
[2017-09-30] MEDS: PEPCID IV SCH ×2 (12:53→21:29)
[2017-09-30] MEDS: HALFPRIN EC PO SCH (12:53)
[2017-09-30] MEDS: LASIX PO SCH (12:53)
[2017-09-30] MEDS: PERCOCET 5/325 PO PRN (12:54)
[2017-09-30] MEDS: ALDACTONE PO SCH (12:54)
[2017-09-30] MEDS: SODIUM CHLORIDE FLUSH SYRINGE 10 ML IV SCH ×2 (12:57→21:30)
[2017-09-30] MEDS: PROCARDIA XL PO SCH (12:57)
--- NOTE | 2017-09-30 13:00 | Cat Scan Report ---
CT HEAD WITHOUT CONTRAST: HISTORY: Post TPA. TECHNIQUE: Sequential 2.5mm CT images. COMPARISON: 09/29/17. FINDINGS: Cerebral Parenchyma: Within normal limits. Cerebellum: Within normal limits. Brainstem: Within normal limits. Ventricles: Normal. Sella: Normal. Extra-axial spaces: Normal. Basal Cisterns: Normal. Intracranial Hemorrhage: None. Midline Shift: None. Calvarium: Normal. Sinuses: Normal. Mastoid Air Cells: Normal. Visualized Orbits: Normal. IMPRESSION: Cranial CT scan within normal limits.
--- NOTE | 2017-09-30 13:57 | Progress Note ---
Assessment and Plan 57 year old msle with history of hypertension, previous TIA, cocaine use, presented on 09/28 with chest pain and SOB, and then progressed to diaphoresis, dizziness, blurred vision, and left sided weakness and numbness witnessed in the ER. He was given TPA and has recovered left arm function but not left leg strength. MRI and MRA are unremarkable. Events may have been triggered by hypertension and cocaine use. A small vessel subcortical event is most likely the cause of his clinical scenario. Following TPA he has regained function of left arm. Left leg slightly improved. Rec - ciontinue ASA, Plavix, atorvastatin. Physical therapy consult. Subjective Date of service: 09/30/17 Principal diagnosis: stroke Interval history: 57 year old, right handed male with history of hypertension and previous TIA presented on 09/28/17 to ER with history of chest pressure and shortness of breath. He had a previous ER admission for left sided weakness in August,, received TPA and improved within several hours. As he was waiting to be seen in the waiting room he developed diaphoresis, palpitations, blurred vision and dizziness. TPA was administered and the patient recovered strength and sensation in his left upper extremity, but is still weak in the LLE. Meanwhile he has had no further chest pain, palpitations, dizziness or diaphoresis. Echocardiogram on 09/09/17 revealed left ventricular EF of 25 to 30%. The patient is feeling well this a.m., exercising his left leg. Objective - Exam Narrative Exam: Neurological - speech fluent, oriented times 3. 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 Tongue midline, hearing intact. Motor - 5/5 on the right and left upper extremity. Left lower extremity, 1/5 proximally and distal extensors. Reflexes - +1 on the left, trace on the right. Sensory - intact both upper extremities and right LE. Left lower extremity - decreased touch and sharp throughout. Able to arise to standing independently. - Vital Sign Vital Signs - 12hr 09/30/17 09/30/17 09/30/17 04:00 07:00 09:59 Temperature 97.4 F L 97.9 F Pulse Rate 75 78 Respiratory 17 Rate Blood Pressure 134/84 Blood Pressure 130/96 [Right] O2 Sat by Pulse 95 Oximetry 09/30/17 09/30/17 09/30/17 10:25 10:26 10:27 Temperature Pulse Rate 104 H 93 H 91 H Respiratory Rate Blood Pressure 142/82 142/79 143/82 Blood Pressure [Right] O2 Sat by Pulse Oximetry 09/30/17 09/30/17 09/30/17 10:28 10:29 10:30 Temperature Pulse Rate 90 85 91 H Respiratory Rate Blood Pressure 148/84 142/82 157/97 Blood Pressure [Right] O2 Sat by Pulse Oximetry 09/30/17 09/30/17 11:00 11:35 Temperature 97.3 F L Pulse Rate 94 H Respiratory Rate Blood Pressure Blood Pressure 146/83 [Right] O2 Sat by Pulse Oximetry - Laboratory Findings CBC and BMP: 09/29/17 03:05 09/29/17 03:05 Abnormal Lab Findings: Abnormal Labs 09/28/17 09/28/17 09/29/17 18:17 18:17 03:05 Plt Count 138 L [place] % (Auto) 10.7 H 10.9 H Eos % (Auto) 5.2 H Baso % (Auto) 2.6 H Total Creatine Kinase 200 H Albumin LDL Cholesterol Direct 09/29/17 03:05 Plt Count [place] % (Auto) Eos % (Auto) Baso % (Auto) Total Creatine Kinase Albumin 3.8 L LDL Cholesterol Direct 150 H
--- NOTE | 2017-09-30 14:00 | Discharge Summary ---
Providers - Providers Date of Admission: 09/28/17 19:11 Date of discharge: 10/01/17 Attending physician: ANDRY KEITA 09/28/17 19:25 Speech Therapy Evaluation and Treat [CONS] Routine Reason For Exam: failed swallow screen 09/28/17 21:36 Consult to Physician [CONS] Routine Comment: Consulting Provider: ALEX GREENWOOD Physician Instructions: Reason For Exam: cva 09/28/17 21:43 Occupational Therapy Evaluate and Treat [CONS] Routine Comment: Reason For Exam: Neuro deficits Physical Therapy Evaluation and Treat [CONS] Routine Comment: Reason For Exam: Neuro deficits 09/29/17 16:07 Physical Therapy Evaluation and Treat [CONS] Routine Comment: Reason For Exam: stroke, left weakness. 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 He was given TPA and has recovered left arm function but not left leg strength. MRI and MRA are unremarkable. 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 and HTN - cont asp/statin - 2d echo had recently which showed dilated cardiomyopathy, will reassess EF - PT recommended acute rehab, CM notified, but [facility] - daughter notified and she will [facility] up [facility] - patient was discharged with daughter in stable condition Chest pain, likely cocaine induced vasospasm - negative CE, EKG - normal stress test today Substance abuse, counselled Dilated cardiomyopathy with chronic systolic CHF - 40% EF - cont asp/statin, compensated now DVT Px - lovenox sunqu Disposition: DC-01 TO HOME OR SELFCARE Time spent for discharge: 34 minutes Core Measure Documentation - Palliative Care Palliative Care/ Comfort Measures: Not Applicable - Core Measures Any of the following diagnoses?: history only Exam - Constitutional Vitals: Temp Pulse Resp BP Pulse Ox 97.3 F L 94 H 17 146/83 95 09/30/17 11:00 09/30/17 11:35 09/30/17 04:00 09/30/17 11:35 09/30/17 04:00 General appearance: Present: no acute distress, well-nourished - EENT Eyes: Present: PERRL ENT: hearing intact, clear oral mucosa - Neck Neck: Present: supple, normal ROM - Respiratory Respiratory effort: normal Respiratory: bilateral: CTA - Cardiovascular Heart Sounds: Present: S1 & S2. Absent: rub, click - Extremities Extremities: pulses symmetrical, No edema Peripheral Pulses: within normal limits - Abdominal General gastrointestinal: Present: soft, non-tender, non-distended, normal bowel sounds - Integumentary Integumentary: Present: clear, warm, dry - Musculoskeletal Musculoskeletal: left sided weakness - Psychiatric Psychiatric: appropriate mood/affect, intact judgment & insight - Neurologic Neurologic: CNII-XII intact, moves all extremities Plan Activity: advance as tolerated Weight Bearing Status: Weight Bear as Tolerated Diet: low fat, low salt Durable Medical Equipment Needed Upon Discharge: Cane (straight cane) Additional Instructions: [facility] Follow up with: PRIMARY CARE, [Primary Care Provider] - 7 Days Prescriptions: AtorvaSTATin [Lipitor] 80 mg PO QHS #30 tablet Aspirin [Aspirin TAB] 325 mg PO DAILY #30 tablet Clopidogrel [Plavix] 75 mg PO QDAY #30 tablet Furosemide [Lasix] 20 mg PO DAILY #30 tablet Lisinopril [Zestril] 30 mg PO DAILY #30 tablet Metoprolol Tartrate 75 mg PO DAILY #30 tablet NIFEdipine XL [Procardia Xl] 60 mg PO QDAY #30 tablet Spironolactone 25 mg PO DAILY #30 tablet
--- NOTE | 2017-09-30 14:30 | Treadmill Report ---
CARDIAC PERFUSION STUDY REASON FOR STUDY: Chest pain. IMAGING PROTOCOL: Single isotope used documented as single isotope protocol. IMAGING RESULTS: Cavity is mildly dilated on both stress and rest. Distribution radionuclide is normal in the anterior, inferior, septal, and apical regions. Gated SPECT, EF 39%, mild to moderate global hypokinesis. The patient infused Lexiscan with no EKG changes. SUMMARY: 1. Negative Lexiscan EKG. 2. Normal rest and stress myocardial perfusion scan. No significant ischemia, mildly dilated LV with mild to moderate LV dysfunction, ejection fraction 39% on gated SPECT, would suggest an echocardiogram for quantification of left ventricular function. JOB# [id number] ALPHONSO/JENNIFER
--- NOTE | 2017-09-30 15:57 | Progress Note ---
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 and HTN - cont asp/statin - 2d echo had recently which showed dilated cardiomyopathy, will reassess EF - PT recommended acute rehab, CM notified Chest pain, likely cocaine induced vasospasm - negative CE, EKG - normal stress test today Substance abuse, counselled Dilated cardiomyopathy with chronic systolic CHF - 40% EF - cont asp/statin, compensated now DVT Px - lovenox sunqu Brief History: 57 year old msle with history of hypertension, previous TIA, cocaine use, presented on 09/28 with chest pain and SOB, and then progressed to diaphoresis, dizziness, blurred vision, and left sided weakness and numbness witnessed in the ER. He was given TPA and has recovered left arm function but not left leg strength. MRI and MRA are unremarkable. Subjective Date of service: 09/30/17 Principal diagnosis: stroke Interval history: Pt seen and examined states took cocaine a day prior to admission c/o left LE weakness Objective - Exam Narrative Exam: General appearance: Present: no acute distress, well-nourished - EENT Eyes: PERRL, EOM intact ENT: hearing intact, clear oral mucosa Ears: bilateral: normal - Neck Neck: supple, normal ROM - Respiratory Respiratory effort: normal Respiratory: bilateral: CTA - Cardiovascular Rhythm: regular Heart Sounds: Present: S1 & S2. Absent: gallop, rub Extremities: pulses intact, No edema, normal color, Full ROM - Gastrointestinal General gastrointestinal: Present: soft, non-tender, non-distended, normal bowel sounds - Integumentary Integumentary: clear, warm, dry - Musculoskeletal Musculoskeletal: 1, strength equal bilaterally - Neurologic Neurologic: moves all extremities, LLE weakness - Psychiatric Psychiatric: memory intact, appropriate mood/affect, intact judgment & insight - Constitutional Vitals: Vital Signs - 12hr 09/30/17 09/30/17 09/30/17 04:00 07:00 09:59 Temperature 97.4 F L 97.9 F Pulse Rate 75 78 Respiratory 17 Rate Blood Pressure 134/84 Blood Pressure 130/96 [Right] O2 Sat by Pulse 95 Oximetry 09/30/17 09/30/17 09/30/17 10:25 10:26 10:27 Temperature Pulse Rate 104 H 93 H 91 H Respiratory Rate Blood Pressure 142/82 142/79 143/82 Blood Pressure [Right] O2 Sat by Pulse Oximetry 09/30/17 09/30/17 09/30/17 10:28 10:29 10:30 Temperature Pulse Rate 90 85 91 H Respiratory Rate Blood Pressure 148/84 142/82 157/97 Blood Pressure [Right] O2 Sat by Pulse Oximetry 09/30/17 09/30/17 11:00 11:35 Temperature 97.3 F L Pulse Rate 94 H Respiratory Rate Blood Pressure Blood Pressure 146/83 [Right] O2 Sat by Pulse Oximetry - Labs CBC & Chem 7: 09/29/17 03:05 09/29/17 03:05
[2017-10-01] MEDS: ALDACTONE PO SCH (08:32)
[2017-10-01] MEDS: HALFPRIN EC PO SCH (09:56)
[2017-10-01] MEDS: LOPRESSOR PO SCH (09:56)
[2017-10-01] MEDS: PROCARDIA XL PO SCH (09:56)
[2017-10-01] MEDS: ZESTRIL PO SCH (09:57)
[2017-10-01] MEDS: LASIX PO SCH (09:57)
[2017-10-01] MEDS ORDERED: PEPCID PO SCH (10:00)
--- NOTE | 2017-10-01 12:54 | Progress Note ---
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 and HTN - cont asp/statin - 2d echo had recently which showed dilated cardiomyopathy, will reassess EF - PT recommended acute rehab, CM notified Chest pain, likely cocaine induced vasospasm - negative CE, EKG - normal stress test today Substance abuse, counselled Dilated cardiomyopathy with chronic systolic CHF - 40% EF - cont asp/statin, compensated now DVT Px - lovenox sunqu Brief History: 57 year old msle with history of hypertension, previous TIA, cocaine use, presented on 09/28 with chest pain and SOB, and then progressed to diaphoresis, dizziness, blurred vision, and left sided weakness and numbness witnessed in the ER. He was given TPA and has recovered left arm function but not left leg strength. MRI and MRA are unremarkable. Subjective Date of service: 10/01/17 Principal diagnosis: stroke Objective - Constitutional Vitals: Vital Signs - 12hr 10/01/17 10/01/17 10/01/17 04:00 07:58 08:32 Temperature 97.7 F Pulse Rate 95 H 71 Respiratory 18 Rate Blood Pressure 125/72 Blood Pressure 118/75 [Right] O2 Sat by Pulse 95 95 Oximetry 10/01/17 10/01/17 10/01/17 09:18 09:56 09:57 Temperature 97.4 F L Pulse Rate 70 74 Respiratory Rate Blood Pressure 132/75 132/75 Blood Pressure [Right] O2 Sat by Pulse Oximetry 10/01/17 10:00 Temperature Pulse Rate Respiratory 20 Rate Blood Pressure Blood Pressure [Right] O2 Sat by Pulse 97 Oximetry - Labs CBC & Chem 7: 09/29/17 03:05 09/29/17 03:05
--- NOTE | 2017-10-01 15:30 | Progress Note ---
Assessment and Plan 57 year old msle with history of hypertension, previous TIA, cocaine use, presented on 09/28 with chest pain and SOB, and then progressed to diaphoresis, dizziness, blurred vision, and left sided weakness and numbness witnessed in the ER. He was given TPA and has recovered left arm function but not left leg strength. MRI and MRA are unremarkable. Events may have been triggered by hypertension and cocaine use. A small vessel subcortical event is most likely the cause of his clinical scenario. Following TPA he has regained function of left arm. Left leg markedly improved after 2 days. Rec - ciontinue ASA, Plavix, atorvastatin. Manage hypertension. No further cocaine. Subjective Date of service: 10/01/17 Principal diagnosis: stroke Interval history: 57 year old, right handed male with history of hypertension and previous TIA presented on 09/28/17 to ER with history of chest pressure and shortness of breath. He had a previous ER admission for left sided weakness in August,, received TPA and improved within several hours. As he was waiting to be seen in the waiting room he developed diaphoresis, palpitations, blurred vision and dizziness. TPA was administered and the patient recovered strength and sensation in his left upper extremity, but is still weak in the LLE. Meanwhile he has had no further chest pain, palpitations, dizziness or diaphoresis. Echocardiogram on 09/09/17 revealed left ventricular EF of 25 to 30%. The patient is feeling well this a.m., exercising his left leg. and feels that his strength has improved. Objective - Exam Narrative Exam: Neurological - speech fluent, oriented times 3. 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 Tongue midline, hearing intact. Motor - 5/5 on the right and left upper extremity. No drift. Left lower extremity, 5/5 to 5-/5 proximally and distal extensors. Reflexes - +1 on the left, trace on the right. Sensory - intact both upper extremities and right LE. Left lower extremity - decreased touch and sharp throughout. Able to arise to standing independently. Can ambulate with a cane. - Vital Sign Vital Signs - 12hr 10/01/17 10/01/17 10/01/17 04:00 07:58 08:32 Temperature 97.7 F Pulse Rate 95 H 71 Respiratory 18 Rate Blood Pressure 125/72 Blood Pressure 118/75 [Right] O2 Sat by Pulse 95 95 Oximetry 10/01/17 10/01/17 10/01/17 09:18 09:56 09:57 Temperature 97.4 F L Pulse Rate 70 74 Respiratory Rate Blood Pressure 132/75 132/75 Blood Pressure [Right] O2 Sat by Pulse Oximetry 10/01/17 10/01/17 10:00 12:00 Temperature 98.5 F Pulse Rate 68 Respiratory 20 Rate Blood Pressure Blood Pressure [Right] O2 Sat by Pulse 97 Oximetry - Laboratory Findings CBC and BMP: 09/29/17 03:05 09/29/17 03:05 Abnormal Lab Findings: Abnormal Labs 09/28/17 09/28/17 09/29/17 18:17 18:17 03:05 Plt Count 138 L [place] % (Auto) 10.7 H 10.9 H Eos % (Auto) 5.2 H Baso % (Auto) 2.6 H Total Creatine Kinase 200 H Albumin LDL Cholesterol Direct 09/29/17 03:05 Plt Count [place] % (Auto) Eos % (Auto) Baso % (Auto) Total Creatine Kinase Albumin 3.8 L LDL Cholesterol Direct 150 H
[2017-10-01 16:07] VITALS: BP 118/56
--- NOTE | 2017-10-03 09:07 | Vascular Lab Report ---
CAROTID DUPLEX STUDY: RIGHT PSVEDV CCA [id number] CCA DIST:[id number] ICA PROX:6624 ICA MID:[id number] ICA DIST:8436 ECA: 6712 VERT: 43 11 LEFT PSVEDV CCA PROX:[id number] CCA DIST:8627 ICA PROX:5713 ICA MID:[id number] ICA DIST:[id number] ECA: 709 VERT: 46 17 REASON FOR EXAM: Stroke. COMMENTS ON THE RIGHT: Doppler frequency analysis is consistent with 16 to 49 percent diameter reduction of the internal carotid artery. Minimal amount of plaque is seen. The common carotid artery is patent. The external carotid artery is patent. The vertebral artery has antegrade flow. COMMENTS ON THE LEFT: Doppler frequency analysis is consistent with 16 to 49 percent diameter reduction of the internal carotid artery. Minimal amount of plaque is seen. The common carotid artery is patent. The external carotid artery is patent. The vertebral artery has antegrade flow. IMPRESSION: Less than 50% diameter reduction in the internal carotid arteries bilaterally.
== END 2017-10-01 18:07 | disposition home or self-care (01) | DRG 62 ==
LOC: ED 17:43 → CC1 19:11 → IMCU 09-29 20:01
PROVIDERS: ADMIT Internal Medicine; ATTEND Internal Medicine
DX: I63.9 Cerebral infarction, unspecified (principal); I67.848 Other cerebrovascular vasospasm and vasoconstriction; I50.22 Chronic systolic (congestive) heart failure; I42.0 Dilated cardiomyopathy; F14.188 Cocaine abuse with other cocaine-induced disorder; I11.0 Hypertensive heart disease with heart failure; Z82.49 Family history of ischemic heart disease and other diseases of the circulatory system; Z83.3 Family history of diabetes mellitus; Z82.3 Family history of stroke; Z79.899 Other long term (current) drug therapy; Z79.82 Long term (current) use of aspirin; Z71.51 Drug abuse counseling and surveillance of drug abuser
CPT/HCPCS: 36415; 70450; 70544; 70551; 78452; 80048; 80053; 80061; 80307; 82550; 82553; 82607; 82962; 83036; 84439; 84443; 84484; 85025; 85610; 85670; 85730; 93005; 93010; 93017; 93880; A9270-GY; A9502; J2270; J2785; J2997